=== PATIENT | female | born 1975 ===

== ENCOUNTER 2020-07-20 15:20 | Outpatient (REF) | payer OTHER, SELFPAY | END 2020-07-20 15:21 | disposition home or self-care (01) | LOC: HO.LAB 15:20 | PROVIDERS: PCP Internal Medicine; Visit Provider Internal Medicine | DX: Z20.828 Contact with and (suspected) exposure to other viral communicable diseases (principal) | CPT/HCPCS: C9803; U0003 ==

== ENCOUNTER → 2020-10-06 13:44 | Outpatient (BNVA) | payer OTHER, SELFPAY | PROVIDERS: PCP Internal Medicine; Visit Provider Hospitalist | DX: J45.50 Severe persistent asthma, uncomplicated (principal); J30.9 Allergic rhinitis, unspecified; G47.33 Obstructive sleep apnea (adult) (pediatric) | CPT/HCPCS: 99212 ==

== ENCOUNTER → 2021-04-06 13:44 | Outpatient (BNVA) | payer OTHER, SELFPAY | PROVIDERS: PCP Internal Medicine; Visit Provider Hospitalist | DX: J45.50 Severe persistent asthma, uncomplicated (principal); J30.9 Allergic rhinitis, unspecified; G47.33 Obstructive sleep apnea (adult) (pediatric) | CPT/HCPCS: 99212 ==

== ENCOUNTER → 2021-04-12 15:16 | Outpatient (BNVA) | payer OTHER, SELFPAY | PROVIDERS: PCP Internal Medicine; Visit Provider Anesthesiology | DX: M47.812 Spondylosis without myelopathy or radiculopathy, cervical region (principal); M47.814 Spondylosis without myelopathy or radiculopathy, thoracic region; M47.816 Spondylosis without myelopathy or radiculopathy, lumbar region; M48.061 Spinal stenosis, lumbar region without neurogenic claudication; M51.36 Other intervertebral disc degeneration, lumbar region; E66.01 Morbid (severe) obesity due to excess calories; E11.69 Type 2 diabetes mellitus with other specified complication; G47.33 Obstructive sleep apnea (adult) (pediatric) | CPT/HCPCS: 99202 ==

== ENCOUNTER 2021-06-15 09:36 | Outpatient (REF) | payer OTHER, SELFPAY ==
--- NOTE | ~2021-06-15 | MR_ITS ---
EXAMINATION: MR LUMBAR SPINE WITHOUT CONTRAST CLINICAL INFORMATION: Spinal stenosis, lumbar region. COMPARISON: There are no prior studies available for comparison. TECHNIQUE: MRI of the lumbar spine was obtained using routine sequences without contrast. FINDINGS: VERTEBRAL BODIES AND PARASPINAL STRUCTURES: There is anatomic alignment of the vertebral bodies. Intervertebral disc heights are maintained, but there is loss of signal from the discs at L3-L4 and L5-S1. There are mild degenerative endplate contour changes. There are small Schmorl's nodes at multiple levels. Vertebral body heights are maintained and there are no acute fractures. There are areas of increased T1 and T2 signal in the bodies of L3 and L5, and in the right pedicle of L5, consistent with hemangiomata. Overall, marrow signal is homogenous. The visualized retroperitoneal and pelvic structures are unremarkable. CONUS MEDULLARIS AND CAUDA EQUINA: Normal, terminating at the level of L1. The lower thoracic spinal cord appears normal. The cauda equina nerve roots and filum terminale appear normal. SPINAL LEVELS: T12-L1: The facet joints appear normal bilaterally. Disc contour is normal. There is no central stenosis or foraminal narrowing. L1-L2: The facet joints appear normal bilaterally. Disc contour is normal. There is no central stenosis or foraminal narrowing. L2-L3: There is mild bilateral facet arthropathy with ligamenta flava hypertrophy. Disc contour is normal. There is no central stenosis or foraminal narrowing. L3-L4: There is mild bilateral facet arthropathy with ligamenta flava hypertrophy. There is a mild diffuse disc bulge. There is no central stenosis and the neural foramina are patent. L4-L5: There is mild to moderate bilateral facet arthropathy with ligamenta flava hypertrophy. There is a posterior disc protrusion extending into the neural foramina bilaterally and there may be impingement on the exiting L4 nerve roots. There is narrowing of the bilateral subarticular recesses, and there is mild central stenosis. L5-S1: There is moderate bilateral facet arthropathy. There is a broad-based posterior disc protrusion with an annular fissure extending into the neural foramina bilaterally, with impingement on the exiting L5 nerve roots inferiorly. There is no central stenosis. MR/MR lumbar spine wo con IMPRESSION: 1. At L4-L5 there is facet arthropathy and there is a posterior disc protrusion extending into neural foramina with likely impingement on the exiting L4 nerve roots. There is narrowing of the bilateral subarticular recesses and there is mild central stenosis. 2. At L5-S1 there is moderate facet arthropathy and there is a broad-based posterior disc protrusion with impingement on the exiting L5 nerve roots. There is no central stenosis.
== END 2021-06-15 09:37 | disposition home or self-care (01) ==
LOC: HO.MRI 09:36
PROVIDERS: Visit Provider Anesthesiology
DX: M48.061 Spinal stenosis, lumbar region without neurogenic claudication (principal); M51.36 Other intervertebral disc degeneration, lumbar region; M47.816 Spondylosis without myelopathy or radiculopathy, lumbar region
CPT/HCPCS: 72148

== ENCOUNTER → 2021-09-17 13:32 | Outpatient (BNVA) | payer OTHER, SELFPAY | PROVIDERS: PCP Internal Medicine; Visit Provider Hospitalist | DX: J45.50 Severe persistent asthma, uncomplicated (principal); J30.9 Allergic rhinitis, unspecified; G47.33 Obstructive sleep apnea (adult) (pediatric); Z79.899 Other long term (current) drug therapy | CPT/HCPCS: 99212 ==

== ENCOUNTER 2022-03-17 11:52 | Outpatient (REF) | payer OTHER, SELFPAY ==
[2022-03-17 12:08] LABS: MANUAL DIFF FLAG NO
[2022-03-17 12:53] LABS: Basophils Percent Auto 0.5 % (0-2); Eosinophils Absolute Auto 0.3 X10*3/uL (0.0-0.4); Eosinophils Percent Auto 4.4 % (0-4); Hematocrit 39.5 % (37.0-47.0); Hemoglobin 12.4 g/dl (12.0-16.0); Imm Gran Abs Auto 0.02 X10*3/uL (0.00-0.03); Imm Gran Pct Auto 0.3 % (0.0-0.4); Lymphocytes Percent Auto 26.7 % (20-40); Mean Corpuscular HGB Conc 31.4 g/dl (31.0-35.0); Mean Corpuscular Hemoglobin 27.6 pg (27.0-33.0); Mean Platelet Volume 11.1 fL (9.4-12.3); Monocytes Absolute Auto 0.5 X10*3/uL (0.1-1.2); Monocytes Percent Auto 6.9 % (2-11); Neutrophils Absolute Auto 4.5 x10*3/uL (2.0-8.3); Neutrophils Percent Auto 61.2 % (45-73); Platelet Count 312 X10*3/uL (160-400); Red Blood Count 4.49 X10*6/uL (4.20-5.50); Red Cell Distribution Width 14.7 % (11.0-16.0); White Blood Count 7.3 X10*3/uL (4.8-10.8)
[2022-03-17 13:32] LABS: Erythrocyte Sedimentation Rate 8 MM/HR (0-20)
== END 2022-03-17 11:53 | disposition home or self-care (01) ==
LOC: HO.LAB 11:52
PROVIDERS: PCP Internal Medicine; Visit Provider Hospitalist
DX: J45.50 Severe persistent asthma, uncomplicated (principal); J44.9 Chronic obstructive pulmonary disease, unspecified; J30.9 Allergic rhinitis, unspecified; J32.9 Chronic sinusitis, unspecified; G47.33 Obstructive sleep apnea (adult) (pediatric)
CPT/HCPCS: 36415; 82785; 85025; 85652; 86003; 99212

== ENCOUNTER → 2022-05-16 10:45 | Outpatient (BNVA) | payer OTHER, SELFPAY | PROVIDERS: PCP Internal Medicine; Visit Provider Hospitalist | DX: J44.9 Chronic obstructive pulmonary disease, unspecified (principal); J45.50 Severe persistent asthma, uncomplicated; G47.33 Obstructive sleep apnea (adult) (pediatric); J32.9 Chronic sinusitis, unspecified | CPT/HCPCS: 99212 ==

== ENCOUNTER → 2022-07-27 07:53 | Outpatient (BNVA) | payer OTHER, SELFPAY | PROVIDERS: PCP Internal Medicine; Visit Provider Internal Medicine Rheumatology | DX: M19.041 Primary osteoarthritis, right hand (principal); M19.042 Primary osteoarthritis, left hand; M17.0 Bilateral primary osteoarthritis of knee; M47.816 Spondylosis without myelopathy or radiculopathy, lumbar region; M79.7 Fibromyalgia | CPT/HCPCS: 99202 ==

== ENCOUNTER → 2022-08-26 10:45 | Outpatient (BNVA) | payer OTHER, SELFPAY | PROVIDERS: PCP Internal Medicine; Visit Provider Hospitalist | DX: J45.50 Severe persistent asthma, uncomplicated (principal); J42 Unspecified chronic bronchitis; J32.9 Chronic sinusitis, unspecified; E66.01 Morbid (severe) obesity due to excess calories; Z68.31 Body mass index [BMI] 31.0-31.9, adult; Z99.89 Dependence on other enabling machines and devices | CPT/HCPCS: 99212 ==

== ENCOUNTER → 2022-12-16 10:52 | Outpatient (BNVA) | payer OTHER, SELFPAY | PROVIDERS: PCP Internal Medicine; Visit Provider Hospitalist | DX: J45.51 Severe persistent asthma with (acute) exacerbation (principal); J30.9 Allergic rhinitis, unspecified; J42 Unspecified chronic bronchitis; J40 Bronchitis, not specified as acute or chronic; G47.33 Obstructive sleep apnea (adult) (pediatric) | CPT/HCPCS: 99212 ==

== ENCOUNTER 2023-09-13 10:02 | Outpatient (AMB) | payer OTHER, SELFPAY ==
[2023-09-13 10:06] VITALS: BP 140/84; PULSE 87; RESP 16; TEMP 36.5; O2SAT 97; BMI 34.0
--- NOTE | 2023-09-13 10:06 | MHC.OFFVIS ---
Intake Vital Signs 09/13/23 10:06 Height 5 ft 2 in Weight 185 lb 13.595 oz BMI 34.0 BP 140/84 H Blood Pressure Location Lt brachial Position Sitting Respiration 16 Pulse 87 Pulse Source Pulse Oximeter Temp 97.7 F Temp Source Tympanic Pulse Oximetry (%) 97 Oxygen Delivery Method Room Air Intake Visit Reasons: Joint pain Textile Converter Required: Yes Textile Converter Name: Zeeshan Maldonado #[id number] Accompanied by: Self / Same As Patient Allergies ciprofloxacin Allergy (Severe, Verified 09/13/23 10:09) Rash and Itching Medication List - Last Reconciled 09/13/23 by Lorena Vazquez RN atorvastatin 40 mg PO DAILY azelastine-fluticasone 137-50 mcg/spray (Dymista) 1 spray intranasal BID 30 days benzonatate 200 mg PO TID PRN 30 days budesonide 0.5 mg inhalation DAILY cetirizine 10 mg PO DAILY 30 days citalopram 0 mg PO codeine-guaifenesin 10-100 mg/5 mL 10 mL PO Q6H PRN 10 days colestipol 3 grams PO BID dextromethorphan-guaifenesin 5-100 mg/5 mL (Robitussin Cough-Chest Congestion DM) 10 mL PO Q6H PRN 30 days dorzolamide-timolol 22.3-6.8 mg/mL 1 drp ophthalmic (eye) BID doxycycline monohydrate 100 mg PO BID 14 days dulaglutide 0.75 mg subcut QWEEK epinephrine 1 IM DIRECTED famotidine (Pepcid) 40 mg PO BEDTIME 30 days fluticasone propion-salmeterol 232-14 mcg/actuation (AirDuo RespiClick) 1 inh inhalation BID gabapentin 800 mg PO TID glipizide ER 10 mg PO BID hydroxyzine pamoate 50 mg PO BID PRN liraglutide 1.2 mg subcut DAILY meloxicam 7.5 mg PO BID metformin ER 500 mg PO BID montelukast (Singulair) 10 mg PO BEDTIME 30 days nebulizers As directed prazosin 2 mg PO BEDTIME pseudoephedrine HCl ER 120 mg PO Q12H 14 days roflumilast (Daliresp) 250 mcg PO DAILY 30 days simethicone (Anti-Gas Ultra Strength) 180 mg PO BID PRN tiotropium bromide 2.5 mcg/actuation 2 puffs PO DAILY trazodone 50 mg PO BEDTIME PRN umeclidinium 62.5 mcg/actuation 1 inh inhalation DAILY HPI HPI Comments History of Present Illness Details Ms. Lopez 48 yoF presents for follow-up evaluation of continued widespread pains. The patient had an initial visit 07/2022 and was put on a PRN basis. The patient has a 25-30 year history of widespread pains. She had been evaluated at [place] about [address] Esteban and yana conclusion was reached as at her visit with our office. She was thought to have fibromyalgia and osteoarthritis. Today she continues to describe pains in the knees, shoulders, neck, lower back, hands mostly around the base of the thumbs, and the feet. She remains on a host of medicines including citalopram, gabapentin, and trazodone. These medicines do help her sleep but do not help too much the pain. In the past she also was taking ibuprofen but that bothered her stomach. She was switched to meloxicam at 7.5 mg b.i.d. but still has stomach upset including pain and loose stools but little relief. She is here today to ask for something stronger for pain relief. [facility] Medical History (Updated 09/13/23 @ 13:37 by Emy Pierre [facility]) Intermittent pain and swelling of hand Chronic bronchitis Morbid obesity Diabetes mellitus type 2 in obese Disc degeneration, lumbar Spinal stenosis, lumbar Spondylosis of lumbar spine Spondylosis of thoracic spine Spondylosis of cervical spine IGGY (obstructive sleep apnea) Chronic allergic rhinitis Asthma Surgical History Hx of endoscopy History of partial hysterectomy Hx of colonoscopy Hx of cholecystectomy History of 3 sections Family History Mother Coronary artery disease Hypertension Diabetes High cholesterol Glaucoma Father Hypertension Diabetes High cholesterol Social History Alcohol intake: current Alcohol intake frequency: does not drink Patient Tobacco Use Status: Never used Tobacco Physical Exam Vital Signs: Last Vital Signs Temp 97.7 F 09/13/23 10:06 Pulse 87 09/13/23 10:06 Resp 16 09/13/23 10:06 BP 140/84 H 09/13/23 10:06 Pulse Ox 97 09/13/23 10:06 Oxygen Delivery Method Room Air 09/13/23 10:06 BMI result Body Mass Index 34.0 APPEARANCE: Patient in no acute distress EYES no redness, pupils equal and reactive to light, eyelids normal EARS: External ear normal, canal clear and tympanic membrane normal. NOSE/SINUS: Airflow through both nares, no nasal discharge, no bleeding THROAT: Oral mucosa moist, no ulcerations NECK: No thyromegaly or masses, no adenopathy, trachea midline. HEART: Regulrar rhythm, S1-S2 heard, no murmurs, rubs or gallops. LUNG: Clear to percussion and auscultation ABD: Normal bowel sounds, no organomegaly, masses or tenderness. EXTREMITIES: No edema, no calf tenderness, normal peripheral pulses. NEURO: Oriented and alert x3. No focal weakness. Reflexes symmetric. Gait normal. SKIN: No inflammatory or neoplastic lesions. Normal color and turgor JOINT EXAM:.?? Cervical Spine:.? Full range of motion with mild discomfort. Some cervical muscle tenderness. Thoracic Spine:.? No scoliosis.? No tenderness on palpation. Lumbar Spine:.? Alignment normal.? Lumbar pain with flexion 75 degrees with some mild paraspinal muscle tenderness. Chest Wall:.? No tenderness, swelling, increased warmth or erythema. Hands: Right: It is mild 1st CMC bony enlargement with [id number] tenderness. There is slight tenderness across all the other MCP and PIP joints but no signs of swelling, redness or warmth. No thenar atrophy or sensory loss. Left: Mild 1st CMC bony enlargement with slight tenderness. Diffuse tenderness in all the other joints in the hand with mild swelling at CMC but no redness or warmth. No flexor tendon triggering, thenar atrophy or sensory loss. Wrists:.? Mild pain with extremes of normal range of motion and some slight dorsal tenderness but no swelling, increased warmth or erythema. Elbows:. Normal pain-free range of motion with slight tenderness over the lateral epicondyles. Over the joint spaces there is tenderness, but no swelling, increased warmth or erythema. Shoulders: Right: Mild pain with abduction at 135 degrees or with extremes of rotation. Mild anterior tenderness. No abductor weakness or adenopathy. Left:?? Full range of motion with slight discomfort at the extremes. Slight anterior tenderness without adenopathy, weakness, swelling, increased warmth or erythema. Hips:.? Full range of motion without pain. Hip bursa:.? No tenderness. Knees:.??Mild pain with extreme of extension or flexion. There is mild medial compartment tenderness and some minimal patellofemoral crepitus but no redness or effusion. Ankles:.? Normal pain-free range of motion without tenderness, swelling, increased warmth or erythema. Feet:.? Normal pain-free range of motion with mild 1st MTP bony enlargement. She has rather diffuse tenderness in the instep, MTP region, and toe regions but no soft tissue swelling, increased warmth or erythema. Tender points:.? Mild tenderness to digital palpation at the occiput, trapezius, second rib, lateral epicondyle, knees, greater trochanter and gluteal area bilaterally. ? Assessment & Plan Assessment & Plan (1) Osteoarthritis of hands, bilateral: Code(s): M19.041 - Primary osteoarthritis, right hand; M19.042 - Primary osteoarthritis, left hand Qualifiers: Osteoarthritis type: primary Qualified Code(s): M19.041 - Primary osteoarthritis, right hand; M19.042 - Primary osteoarthritis, left hand (2) Osteoarthritis of knees, bilateral: Code(s): M17.0 - Bilateral primary osteoarthritis of knee Qualifiers: Osteoarthritis type: primary Qualified Code(s): M17.0 - Bilateral primary osteoarthritis of knee (3) Spondylosis of lumbar spine: Code(s): M47.816 - Spondylosis without myelopathy or radiculopathy, lumbar region (4) Intermittent pain and swelling of hand: Code(s): M79.643 - Pain in unspecified hand; M79.89 - Other specified soft tissue disorders Plan #OA of Knees and Hands/Hand Swelling: Ms. Lopze has had many years of widespread pain. Today on exam there is some soft tissue swelling to bilateral thumb/CMC joints. Radiographically it has been documented that she has some mild osteoarthritis in the cervical spine, lumbar spine, knees, and hands. I will give patient a course of Prednisone and reassess. I will obtain obtain labs and check for esr/crp Elevations and Xrays to assess the hand IP joints. Uric acid levels will also help to eliminate gout. If Prednisone is helpful, given the hand swelling, I will start her on Leflunomide and reassess. I have no record of RHeum labs so I will obtain those also. #Lumbar Spondylosis: She sees Pain management but has not gone back because she does not want injections. I think overall the pain generator is mostly the fibromyalgia. She is already taking an antidepressant and substantial doses of gabapentin. I do not really think there is additional pharmacological maneuvers here that would be beneficial. She should probably not be taking the meloxicam since it could be bothering her stomach. She should switch to acetaminophen up to 1 g t.i.d.. We discussed that light aerobic activity would be beneficial for her overall functioning. Even though she has pains and fatigue with activity she should try to pursue a daily physical activity. I spent 40 minutes reviewing chart, evaluating patient and documenting. Orders: Orders Erythrocyte Sedimentation Rate Today M79.643 - Pain in unspecified hand, M79.89 - Other specified soft tissue disorders C Reactive Protein Today M79.643 - Pain in unspecified hand, M79.89 - Other specified soft tissue disorders Comprehensive Met. Panel Today M79.643 - Pain in unspecified hand, M79.89 - Other specified soft tissue disorders XR hand LT min 3V Today M79.643 - Pain in unspecified hand, M79.89 - Other specified soft tissue disorders XR hand RT min 3V Today M79.643 - Pain in unspecified hand, M79.89 - Other specified soft tissue disorders Anti Extractable Nuclear Ag Today M79.643 - Pain in unspecified hand, M79.89 - Other specified soft tissue disorders Uric Acid Today M79.643 - Pain in unspecified hand, M79.89 - Other specified soft tissue disorders Complete Blood Count Auto Diff Today M79.643 - Pain in unspecified hand, M79.89 - Other specified soft tissue disorders, Z79.899 - Other termite control servicer (current) drug therapy Cyclic Citrullinated Peptide Today M79.643 - Pain in unspecified hand, M79.89 - Other specified soft tissue disorders Rheumatoid Factor Today M79.643 - Pain in unspecified hand, M79.89 - Other specified soft tissue disorders PATI Reflex Titer and Pattern Today M79.643 - Pain in unspecified hand, M79.89 - Other specified soft tissue disorders Medications: New prednisone 3 tablets x 7 days, 2 tablets x 7 days, 1 tablet x 2 weeks stop 60 tabs 0RF M79.643 - Pain in unspecified hand, M79.89 - Other specified soft tissue disorders Coding Level of Care Code Est Pt Level 4 (15416) Diagnoses Primary osteoarthritis of both hands M19.041; M19.042 Osteoarthritis type: primary Primary osteoarthritis of both knees M17.0 Osteoarthritis type: primary Spondylosis of lumbar spine M47.816 Intermittent pain and swelling of hand M79.643; M79.89
== END 2023-09-13 10:42 | disposition home or self-care (01) ==
PROVIDERS: PCP Internal Medicine; Visit Provider Nurse Practitioner Family
DX: M19.041 Primary osteoarthritis, right hand (principal); M19.042 Primary osteoarthritis, left hand; M17.0 Bilateral primary osteoarthritis of knee; M47.816 Spondylosis without myelopathy or radiculopathy, lumbar region; M79.643 Pain in unspecified hand; M79.89 Other specified soft tissue disorders
CPT/HCPCS: 99214

== ENCOUNTER → 2023-09-13 10:02 | Outpatient (BNVA) | payer OTHER, SELFPAY | PROVIDERS: PCP Internal Medicine; Visit Provider Nurse Practitioner Family | DX: M19.041 Primary osteoarthritis, right hand (principal); M19.042 Primary osteoarthritis, left hand; M17.0 Bilateral primary osteoarthritis of knee; M47.816 Spondylosis without myelopathy or radiculopathy, lumbar region; M79.643 Pain in unspecified hand; M79.89 Other specified soft tissue disorders | CPT/HCPCS: 99212 ==

== ENCOUNTER 2023-09-13 10:49 | Outpatient (REF) | payer OTHER, SELFPAY ==
--- NOTE | ~2023-09-13 | XR_ITS ---
EXAMINATION: XR HAND, LEFT CLINICAL INFORMATION: Pain. COMPARISON: None available. TECHNIQUE: PA, lateral, and oblique views of the left hand. FINDINGS: No fracture or subluxation. Mild multifocal degenerative osteoarthritis with joint space narrowing and trace subcortical sclerosis more noticeable in the first CMC and DIPs. No osseous erosions. No unusual soft tissue calcifications. XR/XR hand LT min 3V IMPRESSION: 1. No acute fractures or malalignment. 2. Mild multifocal degenerative osteoarthritis.
--- NOTE | ~2023-09-13 | XR_ITS ---
EXAMINATION: XR HAND, RIGHT CLINICAL INFORMATION: Pain. COMPARISON: None available. TECHNIQUE: PA, lateral, and oblique views of the right hand. FINDINGS: Bony alignment and mineralization are normal. There is a neutral ulnar variance. There are slight periarticular calcifications noted at the second and fourth distal interphalangeal and metacarpophalangeal there is slight periarticular calcifications noted of the third proximal interphalangeal joint. No acute fracture or dislocation is seen. There is no abnormal bone erosion. A small accessory ossification center is noted distal to the navicular. No focal soft tissue swelling, gas or foreign body seen. XR/XR hand RT min 3V IMPRESSION: There is minimal osteoarthritic change of the second through fourth fingers, as detailed. No acute fracture or dislocation is seen. There is no abnormal bone erosion..
[2023-09-13 13:01] LABS: MANUAL DIFF FLAG NO
[2023-09-13 13:04] LABS: Basophils Absolute Auto 0.1 X10*3/uL (0.0-0.2); Basophils Percent Auto 0.9 % (0-2); Eosinophils Absolute Auto 0.3 X10*3/uL (0.0-0.4); Eosinophils Percent Auto 4.8 % (0-4); Hematocrit 38.1 % (37.0-47.0); Imm Gran Abs Auto 0.03 X10*3/uL (0.00-0.03); Imm Gran Pct Auto 0.5 % (0.0-0.4); Lymphocytes Absolute Auto 2.1 X10*3/uL (1.2-4.9); Mean Corpuscular HGB Conc 31.5 g/dl (31.0-35.0); Mean Corpuscular Hemoglobin 27.3 pg (27.0-33.0); Mean Corpuscular Volume 86.6 fL (80.0-98.0); Mean Platelet Volume 10.9 fL (9.4-12.3); Monocytes Absolute Auto 0.9 X10*3/uL (0.1-1.2); Monocytes Percent Auto 13.5 % (2-11); Neutrophils Absolute Auto 3.2 x10*3/uL (2.0-8.3); Neutrophils Percent Auto 48.3 % (45-73); Platelet Count 400 X10*3/uL (160-400); Red Cell Distribution Width 15.7 % (11.0-16.0); White Blood Count 6.7 X10*3/uL (4.8-10.8)
[2023-09-13 13:36] LABS: Rheumatoid Factor < 13.0 IU/mL (<15.0)
[2023-09-13 13:40] LABS: Alanine Aminotransferase 12 U/L (0-31); Albumin Level 3.8 g/dL (3.5-5.0); Alkaline Phosphatase 111 U/L (39-117); Anion Gap 10 (12-20); Aspartate Amino Transferase 11 U/L (5-31); Bilirubin Total 0.4 mg/dL (0.0-1.0); Blood Urea Nitrogen 10 mg/dL (9-16); C Reactive Protein 0.41 mg/dL (< or = 0.50); Carbon Dioxide 29 mmol/L (22-29); Chloride 104 mmol/L (96-108); Estimated Glomerular Filt Rate > 60; Glucose Random 100 mg/dL (60-115); Potassium 3.4 mmol/L (3.3-5.1); Sodium 140 mmol/L (135-145); Total Protein 6.4 g/dL (6.5-8.0); Uric Acid 3.8 mg/dL (2.4-5.7)
[2023-09-13 13:52] LABS: Erythrocyte Sedimentation Rate 11 MM/HR (0-20)
[2023-09-15 14:14] LABS: Cyclic Citrullinated Peptide <16 UNITS
[2023-09-15 19:23] LABS: SM/Ribonucleoprotein Ab <1.0 NEG AI (<1.0 NEG); Smith Protein <1.0 NEG AI (<1.0 NEG)
[2023-09-19 11:19] LABS: Anti Nuclear Antibody Screen NEGATIVE (NEGATIVE)
== END 2023-09-13 10:50 | disposition home or self-care (01) ==
LOC: HO.10HDL 10:49
PROVIDERS: PCP Internal Medicine; Referring Provider Internal Medicine; Visit Provider Nurse Practitioner Family
DX: M79.641 Pain in right hand (principal); M79.642 Pain in left hand; M79.89 Other specified soft tissue disorders; Z79.899 Other long term (current) drug therapy
CPT/HCPCS: 36415; 73130; 80053; 84550; 85025; 85652; 86038; 86140; 86200; 86235; 86431

== ENCOUNTER 2023-10-18 10:33 | Outpatient (AMB) | payer OTHER, SELFPAY ==
[2023-10-18 10:35] VITALS: BP 132/78; PULSE 78; RESP 17; TEMP 36.8; O2SAT 98; BMI 33.4
--- NOTE | 2023-10-18 10:35 | A.OFFVIS_ITS ---
Intake Vital Signs 10/18/23 10:35 Height 5 ft 2 in Weight 182 lb 12.211 oz BMI 33.4 BP 132/78 Blood Pressure Location Lt brachial Respiration 17 Pulse 78 Pulse Source Pulse Oximeter Temp 98.2 F Temp Source Skin Pulse Oximetry (%) 98 Oxygen Delivery Method Room Air Intake Visit Reasons: Hand Pain and Swelling Cornetist Required: Yes Cornetist Name: zhang #[id number] Allergies ciprofloxacin Allergy (Severe, Verified 10/18/23 10:42) Rash and Itching Medication List - Last Reconciled 10/18/23 by Lorena Vazquez RN atorvastatin 40 mg PO DAILY azelastine-fluticasone 137-50 mcg/spray (Dymista) 1 spray intranasal BID 30 days benzonatate 200 mg PO TID PRN 30 days budesonide 0.5 mg inhalation DAILY cetirizine 10 mg PO DAILY 30 days citalopram 0 mg PO codeine-guaifenesin 10-100 mg/5 mL 10 mL PO Q6H PRN 10 days colestipol 3 grams PO BID dextromethorphan-guaifenesin 5-100 mg/5 mL (Robitussin Cough-Chest Congestion DM) 10 mL PO Q6H PRN 30 days dorzolamide-timolol 22.3-6.8 mg/mL 1 drp ophthalmic (eye) BID dulaglutide 0.75 mg subcut QWEEK epinephrine 1 IM DIRECTED famotidine (Pepcid) 40 mg PO BEDTIME 30 days fluticasone propion-salmeterol 232-14 mcg/actuation (AirDuo RespiClick) 1 inh inhalation BID gabapentin 800 mg PO TID glipizide ER 10 mg PO BID hydroxyzine pamoate 50 mg PO BID PRN liraglutide 1.2 mg subcut DAILY meloxicam 7.5 mg PO BID metformin ER 500 mg PO BID montelukast (Singulair) 10 mg PO BEDTIME 30 days nebulizers As directed prazosin 2 mg PO BEDTIME pseudoephedrine HCl ER 120 mg PO Q12H 14 days roflumilast (Daliresp) 250 mcg PO DAILY 30 days simethicone (Anti-Gas Ultra Strength) 180 mg PO BID PRN tiotropium bromide 2.5 mcg/actuation 2 puffs PO DAILY trazodone 50 mg PO BEDTIME PRN umeclidinium 62.5 mcg/actuation 1 inh inhalation DAILY HPI HPI Comments History of Present Illness Details Mr. 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 She denies any side effect of the prednisone except that it makes her eat more. She reports some improvement to her hands and feet on the prednisone. Since she has been off the prednisone she can feel some of the stiffness returning in her hands. She says not as before but she can feel the difference being off the prednisone. 09/13/2023 visit Emy Pierre Ms. Lopez 48 yoF presents for follow-up evaluation of continued widespread pains. The patient had an initial visit 07/2022 and was put on a PRN basis. The patient has a 25-30 year history of widespread pains. She had been evaluated at [place] about [address] Esteban and similar conclusion was reached as at her visit with our office. She was thought to have fibromyalgia and osteoarthritis. Today she continues to describe pains in the knees, shoulders, neck, lower back, hands mostly around the base of the thumbs, and the feet. She remains on a host of medicines including citalopram, gabapentin, and trazodone. These medicines do help her sleep but do not help too much the pain. In the past she also was taking ibuprofen but that bothered her stomach. She was switched to meloxicam at 7.5 mg b.i.d. but still has stomach upset including pain and loose stools but little relief. She is here today to ask for something stronger for pain relief. [facility] Medical History (Updated 10/23/23 @ 12:56 by Emy Pierre, [facility]) Inflammatory arthropathy Long-term use of immunosuppressant medication Intermittent pain and swelling of hand Chronic bronchitis Morbid obesity Diabetes mellitus type 2 in obese Disc degeneration, lumbar Spinal stenosis, lumbar Spondylosis of lumbar spine Spondylosis of thoracic spine Spondylosis of cervical spine IGGY (obstructive sleep apnea) Chronic allergic rhinitis Asthma Surgical History Hx of endoscopy History of partial hysterectomy Hx of colonoscopy Hx of cholecystectomy History of 3 sections Family History Mother Coronary artery disease Hypertension Diabetes High cholesterol Glaucoma Father Hypertension Diabetes High cholesterol Social History Alcohol intake: current Alcohol intake frequency: does not drink Patient Tobacco Use Status: Never used Tobacco Review of Systems Const All systems reviewed & are unremarkable except as noted in HPI and below Physical Exam Vital Signs: Last Vital Signs Temp 98.2 F 10/18/23 10:35 Pulse 78 10/18/23 10:35 Resp 17 10/18/23 10:35 BP 132/78 10/18/23 10:35 Pulse Ox 98 10/18/23 10:35 Oxygen Delivery Method Room Air 10/18/23 10:35 BMI result Body Mass Index 33.4 APPEARANCE: Patient in no acute distress EYES no redness, pupils equal and reactive to light, eyelids normal EARS: External ear normal, canal clear and tympanic membrane normal. NOSE/SINUS: Airflow through both nares, no nasal discharge, no bleeding THROAT: Oral mucosa moist, no ulcerations NECK: No thyromegaly or masses, no adenopathy, trachea midline. HEART: Regulrar rhythm, S1-S2 heard, no murmurs, rubs or gallops. LUNG: Clear to percussion and auscultation ABD: Normal bowel sounds, no organomegaly, masses or tenderness. EXTREMITIES: No edema, no calf tenderness, normal peripheral pulses. NEURO: Oriented and alert x3. No focal weakness. Reflexes symmetric. Gait normal. SKIN: No inflammatory or neoplastic lesions. Normal color and turgor JOINT EXAM:.?? Cervical Spine:.? Full range of motion with mild discomfort. Some cervical muscle tenderness. Thoracic Spine:.? No scoliosis.? No tenderness on palpation. Lumbar Spine:.? Alignment normal.? Lumbar pain with flexion 75 degrees with some mild paraspinal muscle tenderness. Chest Wall:.? No tenderness, swelling, increased warmth or erythema. Hands: Right: It is mild 1st CMC bony enlargement with roah-ax-ukhtkiat tenderness. There is slight tenderness across all the other MCP and PIP joints but no signs of swelling, redness or warmth. No thenar atrophy or sensory loss. Left: Mild 1st CMC bony enlargement with slight tenderness. Diffuse tenderness in all the other joints in the hand with mild swelling at CMC but no redness or warmth. No flexor tendon triggering, thenar atrophy or sensory loss. Wrists:.? Mild pain with extremes of normal range of motion and some slight dorsal tenderness but no swelling, increased warmth or erythema. Elbows:. Normal pain-free range of motion with slight tenderness over the lateral epicondyles. Over the joint spaces there is tenderness, but no swelling, increased warmth or erythema. Shoulders: Right: Mild pain with abduction at 135 degrees or with extremes of rotation. Mild anterior tenderness. No abductor weakness or adenopathy. Left:?? Full range of motion with slight discomfort at the extremes. Slight anterior tenderness without adenopathy, weakness, swelling, increased warmth or erythema. Hips:.? Full range of motion without pain. Hip bursa:.? No tenderness. Knees:.??Mild pain with extreme of extension or flexion. There is mild medial compartment tenderness and some minimal patellofemoral crepitus but no redness or effusion. Ankles:.? Normal pain-free range of motion without tenderness, swelling, increased warmth or erythema. Feet:.? Normal pain-free range of motion with mild 1st MTP bony enlargement. She has rather diffuse tenderness in the instep, MTP region, and toe regions but no soft tissue swelling, increased warmth or erythema. Tender points:.? Mild tenderness to digital palpation at the occiput, trapezius, second rib, lateral epicondyle, knees, greater trochanter and gluteal area bilaterally. ? Results Reviewed Results Reviewed: [facility] [place] MED[facility] Imaging Result Report Patient: Jessica Ochoa Date of Service: 08/23/17 ? ? Patient Gender: Female Ordering Provider: Bre Barriga : 1975 ? ? ? Final X-RAY EXAM OF HAND, 3+ VIEWS Exam Date: 08/23/2017 11:36 AM Ordering Diagnosis: Chronic pain syndromePain in both hands ? Bilateral hands, 3 views of each. History bilateral hands pain and stiffness. ? There is periarticular osteopenia. There is no fractures, dislocations, abnormal soft tissue calcifications or erosions. There are mild degenerative changes in the DIP joints of multiple digits bilaterally. ? CONCLUSIONS: Mild degenerative changes in the DIP joints of multiple digits. Periarticular osteopenia. ? Reading Radiologist: Electronically signed by: Diane Lund MD X-RAY KNEE 3 VIEW - W/O INJURY Exam Date: 06/19/2017 12:29 PM Ordering Diagnosis: Pain in both knees, unspecified chronicity ? History: Bilateral knee pain. ? Bilateral knees, 3 views each: Bony structures are radiographically intact. There are no appreciable degenerative changes. There is no evidence of joint effusions. There are small spurs at the quadriceps tendon insertions on the patella bilaterally. Soft tissues are unremarkable. ? IMPRESSION Small superior patellar spurs. Otherwise normal views of both knees. ? Reading Radiologist: Electronically signed by: Carmencita Lund [facility] MED[facility] Imaging Result Report Patient: Jessica Ochoa Date of Service: 04/12/19 ? ? Patient Gender: Female Ordering Provider: Alex Berumen : 1975 ? ? ? Final X-RAY EXAM OF THORACIC SPINE Exam Date: 04/12/2019 1:42 PM Ordering Diagnosis: Chronic neck and back painMyofascial pain syndromeThoracic segment dysfunction ? Thoracic spine: ? HISTORY: Back pain ? 3 views. Mild multilevel degenerative disc disease with disc space narrowing and endplate spurring. No fracture, subluxation or focal vertebral pathology. Surgical clips right upper quadrant. ? IMPRESSION IMPRESSION: Mild multilevel degenerative disc disease. ? Reading Radiologist: Electronically signed by: Alex Garcia MD * ?Result Notes [id number] ComponentRef Range & Units4 yr ago6 yr ago9 yr ago RHEUMATOID FACTOR<14.0 IU/mL Result: < 10.0< 10.0 * ?Result Notes [id number] ComponentRef Range & Units4 yr ago6 yr agoANTI-NUCLEAR ANTIBODY SCREEN: NEGATIVE NEGATIVENEGATIVE ?CMComment:?PATI test should be ordered only if a clinical evidence of SLE or other rheumatic condition exists. ?PATI test should not be used for random screening h Specimen Collected:?08/30/17 11:04 AMLast Resulted:?09/01/17? ComponentRef Range & Units4 yr ago CCPNEGATIVENEGATIVECCP QUANT<20 UNITS Specimen Collected:?08/30/17 11:04 AMLast Resulte Laboratory Tests 09/13/23 11:00 WBC 6.7 RBC 4.40 Hgb 12.0 Hct 38.1 ESR 11 AST 11 ALT 12 C-Reactive Protein 0.41 Rheumatoid Factor < 13.0 Cycl Citrul Peptide IgG <16 PATI Screen NEGATIVE Sm (Nesbitt) Antibody <1.0 NEG SM/TOUR SALES REPRESENTATIVE IgG Antibody <1.0 NEG Assessment & Plan Assessment & Plan (1) Osteoarthritis of hands, bilateral: Code(s): M19.041 - Primary osteoarthritis, right hand; M19.042 - Primary osteoarthritis, left hand Qualifiers: Osteoarthritis type: primary Qualified Code(s): M19.041 - Primary osteoarthritis, right hand; M19.042 - Primary osteoarthritis, left hand (2) Osteoarthritis of knees, bilateral: Code(s): M17.0 - Bilateral primary osteoarthritis of knee Qualifiers: Osteoarthritis type: primary Qualified Code(s): M17.0 - Bilateral primary osteoarthritis of knee (3) Spondylosis of lumbar spine: Code(s): M47.816 - Spondylosis without myelopathy or radiculopathy, lumbar region (4) Intermittent pain and swelling of hand: Code(s): M79.643 - Pain in unspecified hand; M79.89 - Other specified soft tissue disorders (5) Inflammatory arthropathy: Code(s): M19.90 - Unspecified osteoarthritis, unspecified site (6) Long-term use of immunosuppressant medication: Code(s): Z79.60 - detention (current) use of unspecified immunomodulators and immunosuppressants Plan # inflammatory arthropathy: Given that she has had improvement on the prednisone. Her hand pain and swelling, I will start her on leflunomide 10 mg daily for 2 weeks and then increase to 20 mg daily. The patient agrees with this plan. She says she did feel better on the prednisone there are residual pains, but we hope that leflunomide is effective to address the hand swelling and pain. # long-term use We discussed possible side effects of leflunomide to include but not limited to nausea vomiting diarrhea. Patient knows to stop taking the medi cation if she has fevers and infection. We will monitor her CBC and CMP on leflunomide #OA of Knees and Hands/Hand Swelling: Ms. Lopez has had many years of widespread pain. Radiographically she has mild osteoarthritis in the cervical spine, lumbar spine, knees, and hands. I explained to patient that she will continue to have some pain that may be related to osteoarthritis and lower back pain that does not have an autoimmune inflammatory pathology and will not be improved on leflunomide. She will continue to take ibuprofen, gabapentin and Tylenol. #Lumbar Spondylosis: She sees Pain management but has not gone back because she does not want injections. I think overall the pain generator is mostly the fibromyalgia. She is already taking an antidepressant and substantial doses of gabapentin. I do not really think there is additional pharmacological maneuvers here that would be beneficial. She should probably not be taking the meloxicam since it could be bothering her stomach. She should switch to acetaminophen up to 1 g t.i.d.. We discussed that light aerobic activity would be beneficial for her overall functioning. Even though she has pains and fatigue with activity she should try to pursue a daily physical activity. I spent 25 minutes reviewing chart, evaluating patient and documenting. Follow-up in 8 weeks Orders: Orders C Reactive Protein 10/18/23 Z79.60 - detention (current) use of unspecified immunomodulators and immunosuppressants Alanine Aminotransferase 10/18/23 Z79.60 - detention (current) use of unspecified immunomodulators and immunosuppressants, Z79.899 - Other watermelon harvesting supervisor (current) drug therapy Complete Blood Count Auto Diff 10/18/23 Z79.60 - keno terminal operator (current) use of unspecified immunomodulators and immunosuppressants, Z79.899 - Other longterm (current) drug therapy Creatinine 10/18/23 Z79.60 - detention (current) use of unspecified immunomodulators and immunosuppressants, Z79.899 - Other longterm (current) drug therapy Erythrocyte Sedimentation Rate 10/18/23 Z79.60 - keno terminal operator (current) use of unspecified immunomodulators and immunosuppressants Aspartate Amino Transferase 10/18/23 Z79.60 - keno terminal operator (current) use of unspecified immunomodulators and immunosuppressants, Z79.899 - Other longterm (current) drug therapy Medications: New leflunomide 1 tablets per day x two weeks then 2 tablets per day 90 tabs 2RF M79.643 - Pain in unspecified hand, M79.89 - Other specified soft tissue disorders Coding Level of Care Code Est Pt Level 3 (18375) Diagnoses Primary osteoarthritis of both hands M19.041; M19.042 Osteoarthritis type: primary Primary osteoarthritis of both knees M17.0 Osteoarthritis type: primary Spondylosis of lumbar spine M47.816 Intermittent pain and swelling of hand M79.643; M79.89 Inflammatory arthropathy M19.90 Long-term use of immunosuppressant medication Z79.60
== END 2023-10-18 11:16 | disposition home or self-care (01) ==
PROVIDERS: PCP Internal Medicine; Visit Provider Nurse Practitioner Family
DX: M19.041 Primary osteoarthritis, right hand (principal); M19.042 Primary osteoarthritis, left hand; M17.0 Bilateral primary osteoarthritis of knee; M47.816 Spondylosis without myelopathy or radiculopathy, lumbar region; M79.643 Pain in unspecified hand; M79.89 Other specified soft tissue disorders; M19.90 Unspecified osteoarthritis, unspecified site; Z79.60 Long term (current) use of unspecified immunomodulators and immunosuppressants
CPT/HCPCS: 99213

== ENCOUNTER → 2023-10-18 10:33 | Outpatient (BNVA) | payer OTHER, SELFPAY | PROVIDERS: PCP Internal Medicine; Visit Provider Nurse Practitioner Family | DX: M19.041 Primary osteoarthritis, right hand (principal); M19.042 Primary osteoarthritis, left hand; M17.0 Bilateral primary osteoarthritis of knee; M47.816 Spondylosis without myelopathy or radiculopathy, lumbar region; M79.643 Pain in unspecified hand; M79.89 Other specified soft tissue disorders; M19.90 Unspecified osteoarthritis, unspecified site; Z79.60 Long term (current) use of unspecified immunomodulators and immunosuppressants | CPT/HCPCS: 99212 ==

== ENCOUNTER 2024-04-08 13:36 | Outpatient (AMB) | payer OTHER, SELFPAY ==
[2024-04-08 13:41] VITALS: PULSE 68; O2SAT 98; BMI 33.5
--- NOTE | 2024-04-08 13:41 | A.OFFVIS_ITS ---
Vital Signs 04/08/24 13:41 Height 5 ft 2 in Weight 183 lb BMI 33.5 Pulse 68 Pulse Source Pulse Oximeter Pulse Oximetry (%) 98 Oxygen Delivery Method Room Air Intake Visit Reasons: Asthma Financing Analyst Required: No Allergies ciprofloxacin Allergy (Severe, Verified 04/08/24 13:42) Rash and Itching HPI Comments Details: The patient is a 48-year-old woman known severe persistent asthma multiple allergies on maximize respiratory therapy. She is currently getting Xolair through her extended day teacher. Overall the patient has been doing better on this regimen. However, she still having episodes at nighttime which is waking up short of breath. The episodes are scary and has been becomes very concerned when she wakes up short of breath. Usually she is able to go back to sleep in does not have to use her rescue inhaler. The patient does wake up tired and does have headaches in the morning. Her Kooskia score is elevated over 08/13. The patient has been requested to have sleep studies but she has been reluctant. At this moment the patient needs to consider having sleep study he will plan to do at home so she can be more comfortable and be more hearing to doing it. In addition to that the patient has not been using his Spiriva as prescribed. I am hopeful that she can use it at nighttime in order to minimize some of those symptoms. The patient also has underlying reflux disease. We did talk about the reflux diet and she will try to minimize certain things like tomatoes and also soda. She is already eliminating coffee and fatty greasy foods. The patient will avoid eating 3 hours before bedtime unless she has to because of her diabetes. And she was sleep elevated and but blocks on the head of the bed to elevate the head of bed. 03/1924 the patient is here for pulmonary follow-up visit. Overall the patient has been doing fairly well from a respiratory status. She did have a few bouts of bronchitis during the summer and spring. Although she is feeling better. S he is having issues now with kidney stones. She did follow-up with urology and scheduled to undergo lithotripsy. For respiratory status she is doing very well right now. All she is using his her Ventolin rescue inhaler. The patient did have a maintenance inhaler before but she has not been using it. In view of her asthma issues in requiring her rescue inhaler couple times a week will go ahead and start her on Breo. In addition to that she can continue with her nasal therapy for nasal congestion and allergies. She continue on Xolair. The patient has been treated with CPAP. The CPAP therapy has been affecting beneficial. Although she does not use it every night. The patient does struggle with it still. I did encourage her to try to use it at least 4 hours a night. The patient is able to proceed with surgery and anesthesia from a pulmonary standpoint. Will go ahead and send a preop note to urology stating that she is okay to proceed. The patient should use her short-acting beta agonist as needed pre and post surgery. Otherwise after she has her surgery she can go ahead and start the Breo. [facility] Medical History (Updated 04/08/24 @ 13:48 by Tor Torres MD) Inflammatory arthropathy Long-term use of immunosuppressant medication Intermittent pain and swelling of hand Chronic bronchitis Morbid obesity Diabetes mellitus type 2 in obese Disc degeneration, lumbar Spinal stenosis, lumbar Spondylosis of lumbar spine Spondylosis of thoracic spine Spondylosis of cervical spine IGGY (obstructive sleep apnea) Chronic allergic rhinitis Asthma Surgical History Hx of endoscopy History of partial hysterectomy Hx of colonoscopy Hx of cholecystectomy History of 3 sections Family History Mother Coronary artery disease Hypertension Diabetes High cholesterol Glaucoma Father Hypertension Diabetes High cholesterol Social History Alcohol intake: current Alcohol intake frequency: does not drink Patient Tobacco Use Status: Never used Tobacco Review of Systems Const Reports difficulty sleeping, Denies night sweats and Reports weight gain ENT Denies change in voice, Denies lip swelling, Denies mouth pain, Reports nasal congestion, Reports nasal discharge and Denies tongue swelling Card Denies chest pain Resp Reports chest congestion, Reports cough, Denies hemoptysis and Reports wheezing GI Denies abdominal pain Musc Denies no additional complaints Psych Denies no additional complaints Lasha/Lymph Denies easy bleeding and Denies lymphadenopathy Aller/Immun Denies lip swelling, Denies tongue swelling and Reports wheezing Physical Exam Vital Signs: Last Vital Signs Pulse 68 04/08/24 13:41 Pulse Ox 98 04/08/24 13:41 Oxygen Delivery Method Room Air 04/08/24 13:41 BMI result Body Mass Index 33.5 Const General: alert HEENT Ears: TM's normal bilaterally General nose exam: Abnormal mucous membranes and turbinates present, Nasal discharge present and no nasal polyps Throat: Yes cobblestoning Neck Neck: Yes normal visual inspection, Yes full ROM and Yes no lymphadenopathy Chest Chest palpation & inspection: normal inspection of the chest Resp Effort & Inspection: normal respiratory effort Auscultation: no wheezes and diminished lung sounds Cardio Rate: regular rate Rhythm: regular rhythm Heart sounds: S1 normal heart sound present and S2 normal heart sound present GI Palpation (GI): Soft to palpation and nontender Auscultation: normal bowel sounds Assessment & Plan Assessment & Plan (1) Asthma: Code(s): J45.909 - Unspecified asthma, uncomplicated Category: Medical Qualifiers: Asthma complication type: with acute exacerbation Asthma persistence: persistent Asthma severity: severe Qualified Code(s): J45.51 - Severe persistent asthma with (acute) exacerbation (2) Chronic allergic rhinitis: Code(s): J30.9 - Allergic rhinitis, unspecified Category: Medical (3) IGGY (obstructive sleep apnea): Code(s): G47.33 - Obstructive sleep apnea (adult) (pediatric) Category: Medical (4) Tracheobronchitis: Code(s): J40 - Bronchitis, not specified as acute or chronic Category: Medical (5) Pre-op chest exam: Code(s): Z01.811 - Encounter for preprocedural respiratory examination Category: Medical Plan May proceed with anesthesia and lithotripsy at this time cough medicine stop Airduo BID start Breo daily *Rinse* OMAR as needed Nebulizer therapy therapy 2-3 times a day cont CPAP therapy, adjusted 4-12 Daliressp Continue Xolair. Nasal rinsing follow-up in 4-6 months, needs to bring CPAP Medications: New fluticasone furoate-vilanterol 100-25 mcg/dose (Breo Ellipta) 1 inh inhalation DAILY 30 days 60 ea 11RF azithromycin 500 mg PO DAILY 5 days 5 tabs 0RF Refilled dextromethorphan-guaifenesin 5-100 mg/5 mL (Robitussin Cough-Chest Congestion DM) 10 mL PO Q6H 30 days PRN 400 mL 3RF cough Coding Level of Care Code Est Pt Level 4 (39037) Diagnoses Severe persistent asthma with acute exacerbation J45.51 Asthma complication type: with acute exacerbation Asthma persistence: persistent Asthma severity: severe Chronic allergic rhinitis J30.9 IGGY (obstructive sleep apnea) G47.33 Tracheobronchitis J40 Pre-op chest exam Z01.811 Time Spent (min) 16
== END 2024-04-08 13:56 | disposition home or self-care (01) ==
PROVIDERS: PCP Internal Medicine; Visit Provider Hospitalist
DX: J45.51 Severe persistent asthma with (acute) exacerbation (principal); J30.9 Allergic rhinitis, unspecified; G47.33 Obstructive sleep apnea (adult) (pediatric); J40 Bronchitis, not specified as acute or chronic; Z01.811 Encounter for preprocedural respiratory examination
CPT/HCPCS: 99214

== ENCOUNTER → 2024-04-08 13:36 | Outpatient (BNVA) | payer OTHER, SELFPAY | PROVIDERS: PCP Internal Medicine; Visit Provider Hospitalist | DX: Z01.811 Encounter for preprocedural respiratory examination (principal); J45.51 Severe persistent asthma with (acute) exacerbation; J30.9 Allergic rhinitis, unspecified; J40 Bronchitis, not specified as acute or chronic; G47.33 Obstructive sleep apnea (adult) (pediatric); Z99.89 Dependence on other enabling machines and devices | CPT/HCPCS: 99212 ==

== ENCOUNTER 2024-11-18 12:36 | Outpatient (AMB) | payer OTHER, SELFPAY ==
[2024-11-18 13:03] VITALS: BP 140/72; PULSE 73; O2SAT 98; BMI 32.0
--- NOTE | 2024-11-18 13:03 | A.OFFVIS_ITS ---
Vital Signs 11/18/24 13:03 Height 5 ft 2 in Weight 175 lb BMI 32.0 BP 140/72 H Blood Pressure Location Lt brachial Position Sitting Pulse 73 Pulse Source Pulse Oximeter Pulse Oximetry (%) 98 Oxygen Delivery Method Room Air Intake Visit Reasons: Asthma Line Manager Required: No Allergies ciprofloxacin Allergy (Severe, Verified 11/18/24 13:05) Rash and Itching HPI Comments Details: The patient is a 49-year-old woman known severe persistent asthma multiple allergies on maximize respiratory therapy. She is currently getting Xolair through her seed pelleter. Overall the patient has been doing better on this regimen. However, she still having episodes at nighttime which is waking up short of breath. The episodes are scary and has been becomes very concerned when she wakes up short of breath. Usually she is able to go back to sleep in does not have to use her rescue inhaler. The patient does wake up tired and does have headaches in the morning. Her [place] score is elevated over 08/13. The patient has been requested to have sleep studies but she has been reluctant. At this moment the patient needs to consider having sleep study he will plan to do at home so she can be more comfortable and be more hearing to doing it. In addition to that the patient has not been using his Spiriva as prescribed. I am hopeful that she can use it at nighttime in order to minimize some of those symptoms. The patient also has underlying reflux disease. We did talk about the reflux diet and she will try to minimize certain things like tomatoes and also soda. She is already eliminating coffee and fatty greasy foods. The patient will avoid eating 3 hours before bedtime unless she has to because of her diabetes. And she was sleep elevated and but blocks on the head of the bed to elevate the head of bed. 03/1924 the patient is here for pulmonary follow-up visit. Overall the patient has been doing fairly well from a respiratory status. She did have a few bouts of bronchitis during the summer and spring. Although she is feeling better. She is having issues now with kidney stones. She did follow-up with urology and scheduled to undergo lithotripsy. For respiratory status she is doing very well right now. All she is using his her Ventolin rescue inhaler. The patient did have a maintenance inhaler before but she has not been using it. In view of her asthma issues in requiring her rescue inhaler couple times a week will go ahead and start her on Breo. In addition to that she can continue with her nasal therapy for nasal congestion and allergies. She continue on Xolair. The patient has been treated with CPAP. The CPAP therapy has been affecting beneficial. Although she does not use it every night. The patient does struggle with it still. I did encourage her to try to use it at least 4 hours a night. The patient is able to proceed with surgery and anesthesia from a pulmonary standpoint. Will go ahead and send a preop note to urology stating that she is okay to proceed. The patient should use her short-acting beta agonist as needed pre and post surgery. Otherwise after she has her surgery she can go ahead and start the Breo. 11/18/2024 the patient is here for a pulmonary follow-up visit. She has not been feeling well. She had to stop the Xolair because it was causing rash. She did not want to do any other shots at this time. She continues to use her respiratory inhalers with only partial improvement. She has also been complaining of a sore throat and some subjective fevers and a persistent cough. The cough bothers her at nighttime specially. Moderate severity. She just wants to feel better. She has not been able to use CPAP because she can not tolerate the mask. Therefore she has been sleeping without it. She also complains of some flank discomfort primarily in the left lung. When she is taking a deep breath. Would the look to see if she has had any imaging studies and we did not see any recent imaging studies or laboratories. Therefore after the visit she can go ahead and get x-rays and blood work. In the meantime will go ahead and start her on Symbicort to help her with her symptoms little bit more and also she can start a course of doxycycline. Will go ahead and follow- up with the blood work and she can return in 3 months we can follow-up with her response to therapy and to see if additional therapies are warranted. [facility] Medical History (Updated 04/08/24 @ 13:48 by Tor Torres MD) Inflammatory arthropathy Long-term use of immunosuppressant medication Intermittent pain and swelling of hand Chronic bronchitis Morbid obesity Diabetes mellitus type 2 in obese Disc degeneration, lumbar Spinal stenosis, lumbar Spondylosis of lumbar spine Spondylosis of thoracic spine Spondylosis of cervical spine IGGY (obstructive sleep apnea) Chronic allergic rhinitis Asthma Surgical History Hx of endoscopy History of partial hysterectomy Hx of colonoscopy Hx of cholecystectomy History of 3 sections Family History Mother Coronary artery disease Hypertension Diabetes High cholesterol Glaucoma Father Hypertension Diabetes High cholesterol Social History Alcohol intake: current Alcohol intake frequency: does not drink Patient Tobacco Use Status: Never used Tobacco Review of Systems Const Reports difficulty sleeping, Denies night sweats and Reports weight gain ENT Denies change in voice, Denies lip swelling, Denies mouth pain, Reports nasal congestion, Reports nasal discharge and Denies tongue swelling Card Denies chest pain Resp Reports chest congestion, Reports cough, Denies hemoptysis and Reports wheezing GI Denies abdominal pain Musc Denies no additional complaints Psych Denies no additional complaints Lasha/Lymph Denies easy bleeding and Denies lymphadenopathy Aller/Immun Denies lip swelling, Denies tongue swelling and Reports wheezing Physical Exam Vital Signs: Last Vital Signs Pulse 73 11/18/24 13:03 BP 140/72 H 11/18/24 13:03 Pulse Ox 98 11/18/24 13:03 Oxygen Delivery Method Room Air 11/18/24 13:03 BMI result Body Mass Index 32.0 Const General: alert HEENT Ears: TM's normal bilaterally General nose exam: Abnormal mucous membranes and turbinates present, Nasal discharge present and no nasal polyps Throat: Yes cobblestoning Neck Neck: Yes normal visual inspection, Yes full ROM and Yes no lymphadenopathy Chest Chest palpation & inspection: normal inspection of the chest Resp Effort & Inspection: normal respiratory effort Auscultation: no wheezes and diminished lung sounds Cardio Rate: regular rate Rhythm: regular rhythm Heart sounds: S1 normal heart sound present and S2 normal heart sound present GI Palpation (GI): Soft to palpation and nontender Auscultation: normal bowel sounds Assessment & Plan Assessment & Plan (1) Asthma: Code(s): J45.909 - Unspecified asthma, uncomplicated Category: Medical Qualifiers: Asthma complication type: with acute exacerbation Asthma persistence: persistent Asthma severity: severe Qualified Code(s): J45.51 - Severe persistent asthma with (acute) exacerbation (2) Chronic allergic rhinitis: Code(s): J30.9 - Allergic rhinitis, unspecified Category: Medical (3) IGGY (obstructive sleep apnea): Code(s): G47.33 - Obstructive sleep apnea (adult) (pediatric) Category: Medical (4) Tracheobronchitis: Code(s): J40 - Bronchitis, not specified as acute or chronic Category: Medical Plan start Symbicort OMAR as needed Nebulizer therapy therapy 2-3 times a day not using CPAP therapy not taking Daliresp stopped Xolair. cough medicine Nasal rinsing bloodwork CXR follow-up in 4-6 months Orders: Orders Complete Blood Count Auto Diff Today J45.51 - Severe persistent asthma with (acute) exacerbation Immunoglobulin E Today J45.51 - Severe persistent asthma with (acute) exacerbation Hypersensitive Pneumonitis Prf Today J45.51 - Severe persistent asthma with (acute) exacerbation, R91.8 - Other nonspecific abnormal finding of lung field Erythrocyte Sedimentation Rate Today J45.51 - Severe persistent asthma with (acute) exacerbation XR chest 2V Today J45.51 - Severe persistent asthma with (acute) exacerbation Medications: New benzonatate 200 mg PO BID PRN 60 caps 1RF cough 30 days albuterol sulfate 2.5 mg (3 mL) inhalation Q6H PRN 180 mL 11RF shortness of breath or wheezing 30 days budesonide-formoterol 160-4.5 mcg/actuation (Symbicort) 2 puffs inhalation BID 10.2 grams 11RF 30 days J44.89 - Other specified chronic obstructive pulmonary disease doxycycline hyclate 100 mg PO BID 20 caps 0RF 10 days codeine-guaifenesin 10-100 mg/5 mL 10 mL PO Q6H PRN 300 mL 0RF cough 10 days albuterol sulfate 90 mcg/actuation 2 inhalations inhalation Q6H PRN 18 grams 12RF shortness of breath or wheezing 30 days J44.9 - Chronic obstructive pulmonary disease, unspecified inhalational spacing device (Aerochamber MV spacer) As directed 1 ea 0RF Coding Level of Care Code Est Pt Level 4 (61667) Diagnoses Severe persistent asthma with acute exacerbation J45.51 Asthma complication type: with acute exacerbation Asthma persistence: persistent Asthma severity: severe Chronic allergic rhinitis J30.9 IGGY (obstructive sleep apnea) G47.33 Tracheobronchitis J40 Time Spent (min) 16
--- OUTSIDE RECORDS SUMMARY | 2024-11-18 14:13 | XMS_ITS | Clinical Summary ---
Author Organization [facility] [address] [place] [address] [place] [phone] Phone Care Team Providers Care Laborer Hoisting Name Role Phone Elda Sanchez MD Primary Care Prov ider Allergies Active Allergy Reactions Criticality Noted Date Comments Ciprofloxacin Hives,Rash High 01/31/2015 Medications albuterol HFA (PROAIR HFA ; PROVENTIL HFA ; VENTOLIN HFA) 90 mcg/actuation inhaler Inhale 2 puffs by mouth every 4 (four) hours if needed for shortness of breath or wheezing. 8 Active azelastine 205.5 mcg (0.15 %) spray,non-aerosol Administer 2 sprays into each nostril 2 (two) times a day. 1 Active azelastine-flutica sone 137-50 mcg/spray spray,non-aerosol Administer 1 spray into each nostril 2 (two) times a day. 2 Active brimonidine (ALPHAGAN) 0.2 % ophthalmic solution Administer 1 drop into both eyes 2 (two) times a day. 8 Active cetirizine (ZyrTEC) 10 mg tablet Take 1 tablet (10 mg total) by mouth 1 (one) time each day. 3 Active citalopram (CeleXA) 40 mg tablet Take 1 tablet (40 mg total) by mouth 1 (one) time each day. 9 Active clotrimazole (LOTRIMIN) 1 % cream Apply topically 1 (one) time each day. for 6 weeks Apply to the bottom of her skin for itchiness twice daily 3 Active colestipoL (COLESTID) 1 gram tablet Take 3 tablets (3 g total) by mouth 2 (two) times a day with meals. 3 Active diclofenac (VOLTAREN) 1 % topical gel Apply 4 g topically 2 (two) times a day. 4 Active dorzolamide-timolo L (COSOPT) 22.3-6.8 mg/mL ophthalmic solution Administer 1 drop into both eyes 2 (two) times a day. 1 Active dulaglutide (Trulicity) 0.75 mg/0.5 mL pen injector injection Inject 0.5 mL (0.75 mg total) under the skin 1 (one) time per week. 4 Active EPINEPHrine (EpiPen 2-Taras) 0.3 mg/0.3 mL injection Inject 0.3 mL (0.3 mg total) as directed if needed for anaphylaxis. 1 Active famotidine (PEPCID) 40 mg tablet Take 1 tablet (40 mg total) by mouth at bedtime. 2 Active flurbiprofen (OCUFEN) 0.03 % ophthalmic solution Administer 1 drop into both eyes 1 (one) time. 0 Active fluticasone propionate (FLONASE) 50 mcg/actuation nasal spray Administer 2 sprays into affected nostril(s) 1 (one) time each day. 1 Active blood sugar diagnostic (FreeStyle Lite Strips) test strip 1 each by Other route 2 (two) times a day. 3 Active blood-glucose meter kit 1 each by Not Applicable route 1 (one) time each day. for 360 days 9 Active umeclidinium (Incruse Ellipta) 62.5 mcg/actuation inhalation Inhale 1 puff by mouth 1 (one) time each day. 0 Active pen needle, diabetic (BD ULTRA-FINE SHORT PEN NEEDLE MISC) 1 each by Not Applicable route 1 (one) time each day. 31G X 8 MM 0 Active lidocaine (LIDODERM) 5 % patch Place 1 patch on the skin 1 (one) time each day. for 112 days. Apply for no more than 12 hours in any 24 hour period 4 Active mometasone-formote rol (DULERA 200) 200-5 mcg/actuation inhaler Inhale 1 puff by mouth 2 (two) times a day. 0 Active pregabalin (LYRICA) 150 mg capsule Take 1 capsule (150 mg total) by mouth 2 (two) times a day. 3 Active simethicone (MYLICON,GAS-X) 180 mg capsule Take 1 capsule (180 mg total) by mouth 2 (two) times a day if needed for flatulence. for up to 90 days 1 Active traZODone (DESYREL) 100 mg tablet Take 1 tablet (100 mg total) by mouth at bedtime as needed. 1 Active triamcinolone (KENALOG) 0.1 % cream Apply 80 g topically 1 (one) time each day. with Cerave cream. Apply daily from neck down after showers. Not to be used on the face 0 Active white petrolatum (Vaseline White Petroleum) ointment Apply 1 applicator topically if needed. for Dry Skin for up to 360 days 3 Active busPIRone (BUSPAR) 5 mg tablet Take 1 tablet (5 mg total) by mouth 2 (two) times a day. Active cholecalciferol (VITAMIN D-3) 50 mcg (2,000 unit) capsule Take 1 capsule (2,000 Units total) by mouth 1 (one) time each day. 90 each 1 4 025 Active atorvastatin (LIPITOR) 80 mg tablet Take 1 tablet (80 mg total) by mouth 1 (one) time each day. 90 each 1 4 025 Active metFORMIN XR (GLUCOPHAGE-XR) 500 mg 24 hr tabletIndications: Type 2 diabetes mellitus with diabetic polyneuropathy (CMS/HCC) TAKE 1 TABLET BY MOUTH TWICE A DAY 180 tablet 1 5 Active Active Problems Problem Noted Date Diagnosed Date Anxiety 05/26/2024 Overview (05/26/2024): Sees BH Asthma 05/26/2024 Overview (05/26/2024): Severe persistant, followed by PULM Hyperlipidemia 05/26/2024 Assessment & Plan (07/05/2024 1:32 PM EST): Given the patients cardiac risk profile and, the patient requires an LDL cholesterol of less than 70. I have instructed the patient on the principles of a low cholesterol diet and the importance of regular exercise. Continue atorvastatin 40 mg daily. Will recheck a lipid profile. Orders: Microalbumin creatinine urine ratio; Future Comprehensive metabolic panel; Future Hemoglobin A1c; Future Lipid panel with reflex to direct LDL; Future Major depression 05/26/2024 Overview (05/26/2024): CHD Positive PPD 05/26/2024 Overview (05/26/2024): 21 mm Primary hypertension 05/26/2024 Assessment & Plan (07/05/2024 1:32 PM EST): At the time of this visit, the blood pressure is well controlled on diet. The patient is instructed to follow a low sodium diet and to follow up in 4 months. Orders: Microalbumin creatinine urine ratio; Future Comprehensive metabolic panel; Future Hemoglobin A1c; Future Lipid panel with reflex to direct LDL; Future Class 1 obesity due to exces s calories with serious comorbidity and body mass index (BMI) of 32.0 to 32.9 in adult 05/26/2024 Neuropathy 02/24/2021 Chronic diarrhea 02/07/2020 Snoring 08/22/2019 Overview (05/26/2024): Patient has been contacted by Sleep Medicine services to schedule a in lab sleep study x with no response. Message left on voicemail with sleep lab phone # to encourage patient to have testing done. No call back. Type 2 diabetes mellitus wit h diabetic polyneuropathy, without long-term current use of insulin 06/03/2019 Cutaneous mastocytosis 08/15/2017 Osteopenia 08/15/2017 Overview (05/26/2024): DEXA 03/20/2015 LUMBAR T -1.3, L femoral neck T-1.1 Pulmonary nodules 08/15/2017 Overview (05/26/2024): CT 02/09/2015 CT in 2020 unchanged. No further work up needed Thoracic spondylosis 08/15/2017 Vitamin D deficiency 08/15/2017 Obesity (BMI 30-39.9) 07/20/2016 Elevated alkaline phosphatase level 07/05/2016 Degenerative arthritis of knee, bilateral 2015 Type 2 diabetes mellitus without complication Chronic pain 05/21/2015 Neck pain 05/21/2015 Allergic rhinoconjunctivitis 01/02/2015 Overview (05/26/2024): Sees Allergy and PULM Ovarian cyst 01/08/2014 Encounters Date Type Department Care Team Description 11/04/2024 3:00 PM EDT Treatment [address] [phone] Jakub Kwong, ANUJ Primary osteoarthritis of both knees (Primary Dx); Chronic pain of left knee 10/17/2024 2:00 PM EST Evaluation [address] [phone] Gerber Smith, PT Primary osteoarthritis of both knees; Chronic pain of left knee 09/27/2024 11:00 AM EST Consult Orthopedic Surgery [facility] [address] [phone] Lacy Mark PA Primary osteoarthritis of both knees (Primary Dx); Chronic pain of left knee from Last 3 Months Immunizations Name Administration Dates Next Due Influenza Quadravalent, MDCK , 0.5ml, preservative free (Flucelvax) 6mo and older 05/03/2023,05/31/2022 Influenza trivalent, with pr eservative (Fluzone; Afluria) 6mo and older 07/05/2016,05/11/2015 Influenza, Unspecified 07/23/2021 Moderna SARS-CoV-2 COVID-19, mRNA, LNP-S, preservative free 02/15/2021,12/11/2020,11/13/2020 PPD Test 01/04/2017 Pneumococcal polysaccharide 23 valent (Pneumovax 23) 2yo and older 01/08/2014 Tdap Tetanus diptheria acell ular pertussis (Boostrix; Adacel) 7yo and older 01/08/2014 Surgical History Surgery Date Site/Laterality Comments PARTIAL HYSTERECTOMY 2005 PROCEDURE: TN SUPRACERVICAL ABDL HYSTER W/WO RMVL TUBE OVARY; COMMENT: fibroids CHOLECYSTECTOMY 2005 PROCEDURE: HISTORICAL CHOLECYSTECTOMY SECTION PROCEDURE: HISTORICAL DELIVERY; COMMENT: X3 UPPER GASTROINTESTINAL ENDOSCOPY 04/02/2020 PROCEDURE: TN UPPER GI ENDOSCOPY PERFORMED; COMMENT: Visually normal, duodenal biopsies obtained to evaluate chronic diarrhea. COLONOSCOPY 04/02/2020 PROCEDURE: HISTORICAL COLONOSCOPY; COMMENT: Visually normal, random biopsies obtained to evaluate chronic diarrhea. Medical History Medical History Date Comments Esophageal reflux 08/15/2017 DX:Esophageal reflux Allergic rhinoconjunctivitis 01/02/2015 DX: Allergic rhinoconjunctivitis; COMMENT: Sees Allergy and PULM Anxiety DX:Anxiety; COMM ENT: Sees Asthma DX:Asthma; COMME NT: Severe persistant, followed by PULM Chronic pain 05/21/2015 DX:Chronic pain Cutaneous mastocytosis 08/15/2017 DX:Cutane ous mastocytosis Degenerative arthritis of knee, bilateral 2015 DX:Degenerative arthritis of knee, bilateral Elevated alkaline phosphatase level 07/05/2016 DX:Elevated alkaline phosphatase level HTN (hypertension) DX:HTN (hyper tension) Hyperlipidemia DX:Hyperlipidemi a Major depression DX:Major depres teofilo; COMMENT: CHD Neck pain 05/21/2015 DX:Neck pain Obesity (BMI 30-39.9) 07/20/2016 DX:Obesity (BMI 30-39.9) Osteopenia 08/15/2017 DX:Osteopenia; C OMMENT: DEXA 03/20/2015 LUMBAR T -1.3, L femoral neck T-1.1 Ovarian cyst 01/08/2014 DX:Ovarian cyst Positive PPD DX:Positive PPD; COMMENT: 21 mm Pulmonary nodules 08/15/2017 DX:Pulmonary n odules; COMMENT: CT 02/09/2015 Thoracic spondylosis 08/15/2017 DX:Thoracic spondylosis Vitamin D deficiency 08/15/2017 DX:Vitamin D deficiency Neuropathy DX:Neuropathy Diabetes mellitus (CMS/HCC) DX:D iabetes mellitus (HCC) Family History Medical History Relation Name Comments Diabetes Brother Hypertension Father DM, cataract, H LD Coronary artery disease Mother --di ed in her 50s, HTN, DM, HLD, glaucoma Colon cancer Neg Hx Relation Name Status Comments Brother Father Mother Social History Tobacco Use Types Packs/Day Years Used Date Smoking Tobacco: Never Smokeless Tobacco: Never Tobacco Cessation:Counseling Given: Not Answered Alcohol Use Standard Drinks/Week Comments No 0 (1 standard drink = 0.6 oz pur e alcohol) Housing Instability Answer Date Recorde d Are you worried that in the next 2 months you may not have stable housing? Yes 07/04/2024 Food Access & Nutrition Answer Date Rec orded Do you have access to a vari ety of food including fruits and vegetables? Yes 07/04/2024 Access to Healthcare Answer Date Record ed Within the last 3 months, ho w many times did you visit the emergency department for your medical care? 1 07/04/2024 Health Literacy Answer Date Recorded How often do you need to hav e someone help you when you read instructions, pamphlets, or other written material from your doctor or pharmacy? Sometimes 07/04/2024 Caregiver: How often do you need to have someone help you when you read instructions, pamphlets, or other written material from your doctor or pharmacy? Not on file 07/04/2024 Financial Risk Answer Date Recorded How hard is it for you to pa y for the very basics like food, housing, medical care, and air conditioning / heating? Somewhat hard 07/04/2024 Transportation Answer Date Recorded Has the lack of transportati on kept you from meetings, work, or from getting things needed for daily living? Yes Has the lack of transportati on kept you from medical appointments or from getting medications? Yes 07/04/2024 Social Isolation Answer Date Recorded How often do you feel lonely or isolated from those around you? Sometimes 07/04/2024 Food Risk Answer Date Recorded Within the past 12 months we worried whether our food would run out before we got money to buy more. Often true 07/04/2024 Within the past 12 months th e food we bought just didn't last and we didn't have money to get more. Often true 07/04/2024 Dependent Care Answer Date Recorded Do you need help finding or paying for care for your loved ones. For example, child care specialist or elderly care for an older adult? No 07/04/2024 Education Answer Date Recorded Do you think completing more education or training, like finishing a GED, going to college, or learning a trade, would be helpful for you? No 07/04/2024 Employment and Income Answer Date Recor ded During the last four weeks, have you been actively looking for work? No 07/04/2024 Living Situation Answer Date Recorded What is your living situation? 1 09/03/2023 Comments No Sex and Gender Information Value Date Recorded Sex Assigned at Not on file Legal Sex Female 5:20 PM EST Gender Identity Not on file Sexual Orientation Not on file Obstetrics History Last Filed Vital Signs Vital Sign Reading Time Taken Comments Blood Pressure 120/70 07/04/2024 11:29 AM EST Pulse 78 07/04/2024 11:00 AM EST Temperature 36 ??C (96.8 ??F) 07/04/2024 11: 00 AM EST Respiratory Rate 16 07/04/2024 11:0 0 AM EST Oxygen Saturation 99% 05/03/2023 2:1 5 PM EDT at rest, room air Inhaled Oxygen Concentration - - Weight 83 kg (183 lb) 09/27/2024 10:41 AM EST Height 160 cm (5' 3 ) 09/27/2024 10:41 AM EST Body Mass Index 32.42 09/27/2024 10:41 AM EST Plan of Treatment Upcoming Encounters Date Type Department Care Team (Late st Contact Info) Description 11/18/2024 3:00 PM EDT Treatment [facility] [address] [phone] Polly Shane, MAYDA 11/25/2024 3:00 PM EDT Treatment [facility] [address] [phone] Jakub Kwong, [employer] 12/02/2024 2:00 PM EDT Treatment [facility] [address] [phone] Jakub Kwong PTA 12/09/2024 2:00 PM EDT Treatment [facility] [place] 175 [facility] [address] [place] [phone] Gerber Smith, MAYDA 12/25/2024 11:00 AM EDT Office Visit [facility] [place] 160 175 [facility] 160 [place] [phone] Lacy Mark PA 175 [facility] 160 [place] [address] 03/17/2025 2:10 PM EDT Appointment Radiology Department [address] [phone] Health Maintenance Due Date Last Done Comments Diabetes: Annual Retina Eye Exam 1983 Hepatitis B Vaccines (1 of 3 - 19+ 3-dose series) 1992 Zoster Vaccines (1 of 2) 1992 Pneumococcal Vaccine: 50+ Years (2 of 2 - PCV) 01/08/2015 01/08/2014 Pneumococcal Vaccine: Pediatrics (0 to 5 Years) and At-Risk Patients (6 to 64 Years) (2 of 2 - PCV) 01/08/2015 01/08/2014 HIV Screening 07/30/2022 DTaP,Tdap,and Td Vaccines (2 - Td or Tdap) 01/09/2024 01/08/2014 COVID-19 Vaccine ( season) 2024 11/08/2022, 06/17/2021, 02/15/2021, Additional history exists Depression Screening 08/24/2024 08/24/2023 Diabetes: Blood Sugar Control Test (HGBA1C) 01/01/2025 07/04/2024, 01/16/2024, 01/16/2024 Diabetes: Annual Foot Exam 01/10/2025 01/11/2024 Diabetes: Annual Urine Albumin-Creatinine Ratio (uACR) 07/04/2025 07/04/2024, 01/19/2023 Diabetes: Annual GFR (Glomerular Filtration Rate) 07/04/2025 07/04/2024, 11/23/2023 Hypertension/CHF/CAD Annual BMP Blood Test 07/04/2025 07/04/2024, 11/23/2023 Social Influencers of Health Screening 07/04/2025 07/04/2024 Breast Cancer Screening 03/07/2026 03/07/20 24, 03/07/2024, 03/06/2023, Additional history exists Cholesterol Screening (Lipid Panel) 07/04/2029 07/04/2024, 11/23/2023 Colorectal Cancer Screening: Colonoscopy 04/02/2030 04/02/2020 Influenza Vaccine Discontinued 05/03/2023, , 07/23/2021, Additional history exists Hepatitis C Screening Completed 01/16/2024 HIB Vaccines Aged Out No longer eligi ble based on patient's age to complete this topic HPV Vaccines Aged Out No longer eligi ble based on patient's age to complete this topic Hepatitis A Vaccines Aged Out No long er eligible based on patient's age to complete this topic IPV Vaccines Aged Out No longer eligi ble based on patient's age to complete this topic MMR Vaccines Aged Out No longer eligi ble based on patient's age to complete this topic Meningococcal ACWY Vaccine Aged Out N o longer eligible based on patient's age to complete this topic Meningococcal B Vacine Aged Out No lo nger eligible based on patient's age to complete this topic RSV Immunization Patients Under 20 months Aged Out No longer eligible based on patient's age to complete this topic Varicella Vaccines Aged Out No longer eligible based on patient's age to complete this topic Goals Goal Patient Goal Type Associated Problems Recent Progress Patient-Stated? Author PT LTGs General No Gerber Smith, MAYDA Note: Pt will ascend/descend 12 steps with no knee pain reported Pt will complete 6 minute walk test with no knee pain reported Pt will be independent with HEP Procedures Procedure Name Priority Date/Time Associated Diagnosis Comments MICROALBUMIN CREATININE URINE RATIO Routine 07/04/2024 12:03 PM EST DM (diabetes mellitus) with complications (CMS/HCC) Primary hypertension Mixed hyperlipidemia COMPREHENSIVE METABOLIC PANEL Routine 07/04/2024 12:03 PM EST DM (diabetes mellitus) with complications (CMS/HCC) Primary hypertension Mixed hyperlipidemia HEMOGLOBIN A1C Routine 07/04/2024 12:03 PM EST DM (diabetes mellitus) with complications (CMS/HCC) Primary hypertension Mixed hyperlipidemia LIPID PANEL WITH REFLEX TO DIRECT LDL Routine 07/04/2024 12:03 PM EST DM (diabetes mellitus) with complications (CMS/HCC) Primary hypertension Mixed hyperlipidemia SCREENING MAMMOGRAPHY BI 2-VIEW BREAST INC CAD Routine 03/07/2024 2:02 PM EDT Encounter for screening mammogram for malignant neoplasm of breast HEPATITIS C SCREENING Routine 01/16/2024 DIABETES FOOT EXAM Routine 01/11/2024 DEPRESSION SCREENING Routine 08/24/2023 COLONOSCOPY Routine 04/02/2020 from Last 3 Months or Most Recently Relevant to Health Maintenance Results * (ABNORMAL) Lipid panel with reflex to direct LDL (07/04/2024 12:03 PM EST) Cholesterol 252(H) 0 - 200 mg/dL LAB CHEMISTRY METHOD 07/04/2024 4:20 PM [facility] Triglycerides 125 0 - 150 mg/dL LAB CHEMISTRY METHOD 07/04/2024 4:20 PM [facility] HDL 76 >=40 mg/dL LAB CHEMISTRY METHOD 07/04/2024 4:20 PM [facility] LDL Calculated 151(H) 0 - 100 mg/dL LAB CHEMISTRY METHOD 07/04/2024 4:20 PM [facility] VLDL Cholesterol Jf 25 mg/dL LAB CHEMISTRY METHOD 07/04/2024 4:20 PM [facility] Non HDL Chol. (LDL+VLDL) 176(H) <145 mg/dL LAB CHEMISTRY METHOD 07/04/2024 4:20 PM [facility] Chol/HDL Ratio 3.3 0.0 - 4.4 LAB CHEMISTRY METHOD 07/04/2024 4:20 PM EST [facility] Blood Venous blood specimen / Unknown Venipuncture / Unknown 07/04/2024 12:03 PM EST 07/04/2024 12:03 PM EST Elda Sanchez MD LAB BLOOD ORDERABL ES Final Result [facility] [address] [place] [address], [place] [phone] * Microalbumin creatinine urine ratio (07/04/2024 12:03 PM EST) Creatinine, Urine 131.0 mg/dL LAB CHEMISTRY METHOD 07/04/2024 5:18 PM EST [facility] Microalb, Ur 19.7 0.0 - 29.0 mg/L LAB CHEMISTRY METHOD 07/04/2024 5:18 PM EST [facility] Microalb/Creat Ratio 15 <30 mg/g creat LAB CHEMISTRY METHOD 07/04/2024 5:18 PM EST [facility] Urine Urine specimen from urethra / Unknown Non-blood Collection / Unknown 07/04/2024 12:03 PM EST 07/04/2024 12:03 PM EST Elda Sanchez MD LAB URINE ORDERABL ES Final Result [facility] [address] [place] [address], [place] [phone] * (ABNORMAL) Hemoglobin A1c (07/04/2024 12:03 PM EST) Hemoglobin A1C 6.9(H) <6.5 % LAB CHEMISTRY METHOD 07/04/2024 10:27 PM EST [facility] Mean Bld Glu Estim. 151 mg/dL LAB CHEMISTRY METHOD 07/04/2024 10:27 PM [facility] Blood Venous blood specimen / Unknown Venipuncture / Unknown 07/04/2024 12:03 PM EST 07/04/2024 12:03 PM EST us Elda Sanchez MD LAB BLOOD ORDERABL ES Final Result [facility] [address] [place] [address], * (ABNORMAL) Comprehensive metabolic panel (07/04/2024 12:03 PM EST) Sodium 140 133 - 145 mmol/L LAB CHEMISTRY METHOD 07/04/2024 4:20 PM [facility] Potassium 4.2 3.5 - 5.5 mmol/L LAB CHEMISTRY METHOD 07/04/2024 4:20 PM [facility] Chloride 105 96 - 110 mmol/L LAB CHEMISTRY METHOD 07/04/2024 4:20 PM [facility] CO2 30 21 - 32 mmol/L LAB CHEMISTRY METHOD 07/04/2024 4:20 PM [facility] Anion Gap 5 3 - 11 LAB CHEMISTRY METHOD 07/04/2024 4:20 PM [facility] Glucose 98 70 - 100 mg/dL LAB CHEMISTRY METHOD 07/04/2024 4:20 PM [facility] BUN 10 5 - 25 mg/dL LAB CHEMISTRY METHOD 07/04/2024 4:20 PM [facility] Creatinine 0.66 0.50 - 1.10 mg/dL LAB CHEMISTRY METHOD 07/04/2024 4:20 PM [facility] eGFR 107 >=60 mL/min/1. 73m2 LAB CHEMISTRY METHOD 07/04/2024 4:20 PM [facility] Comment:Calculation based on the??Chronic Kidney Disease Epidemiology Collaboration (CKD-EPI) equation refit??without adjustment for race. BUN/Creatinine Ratio 15.2 LAB CHEMISTRY METHOD 07/04/2024 4:20 PM [facility] Calcium 9.9 8.5 - 10.5 mg/dL LAB CHEMISTRY METHOD 07/04/2024 4:20 PM [facility] AST (SGOT) 14 10 - 42 unit/L LAB CHEMISTRY METHOD 07/04/2024 4:20 PM [facility] ALT (SGPT) 20 10 - 60 unit/L LAB CHEMISTRY METHOD 07/04/2024 4:20 PM [facility] Alkaline Phosphatase 138(H) 42 - 121 unit/L LAB CHEMISTRY METHOD 07/04/2024 4:20 PM [facility] Total Protein 7.0 6.0 - 8.0 g/dL LAB CHEMISTRY METHOD 07/04/2024 4:20 PM [facility] Albumin 3.9 3.2 - 5.0 g/dL LAB CHEMISTRY METHOD 07/04/2024 4:20 PM [facility] Total Bilirubin 0.5 0.0 - 1.4 mg/dL LAB CHEMISTRY METHOD 07/04/2024 4:20 PM [facility] Blood Venous blood specimen / Unknown Venipuncture / Unknown 07/04/2024 12:03 PM EST 07/04/2024 12:03 PM EST us Elda Sanchez MD LAB BLOOD ORDERABL ES Final Result [facility] [address] [place] [address], * SCREENING MAMMOGRAPHY BI 2-VIEW BREAST INC CAD (03/07/2024 2:02 PM EDT) Anatomical Region Laterality Modality Radiographic Jennifer ging 03/06/2023 1:19 PM EDT Narrative 03/08/2024 8:14 AM EDT This is a summary report. The complete report is available in the patient's medical record. If you cannot access the medical record, please contact the sending organization for a detailed fax or copy. Full field digital screening tomosynthesis mammography, reviewed with CAD and compared to previous. The breasts are composed of fatty and fibroglandular tissue. ??No suspicious mass, architectural distortion or suspicious calcifications are identified. IMPRESSION: : No mammographic evidence of malignancy. BIRADS 1-Negative; N. 5 year breast cancer risk assessment 0.5 % Lifetime breast cancer risk assessment 5.0 % Breast cancer risk category Low (<15%) Procedure Note Cesia Chahal MD - 06/05/2024 This is a summary report. The complete report is available in thepatient's medical record. If you cannot access the medical record, pleasecontact the sending organization for a detailed fax or copy. Full field digital screening tomosynthesis mammography, reviewed with CADand compared to previous. The breasts are composed of fatty andfibroglandular tissue. No suspicious mass, architectural distortion orsuspicious calcifications are identified. IMPRESSION: : No mammographic evidence of malignancy. BIRADS 1-Negative; N. 5 year breast cancer risk assessment 0.5 % Lifetime breast cancer risk assessment 5.0 % Breast cancer risk category Low (<15%) Result [facility] Elda Sanchez MD IMG XR PROCEDURES Final Result * Hepatitis C Screening (01/16/2024) [facility] Hepatitis C Screening abstracted Result [facility] Provider HEALTH MAINTENANCE Final Result * Diabetes Foot Exam (01/11/2024) [facility] Diabetes: Annual Foot Exam abstracted Result [facility] HEALTH MAINTENANCE Final Result * Depression Screening (08/24/2023) [facility] Depression Screening abstracted Result [facility] HEALTH MAINTENANCE Final Result * Colonoscopy (04/02/2020) [facility] [facility] no interpretation , abstracted Anatomical Region Laterality Modality Other Result [facility] HEALTH MAINTENANCE Final Result from Last 3 Months or Most Recently Relevant to Health Maintenance [place] [address] [address] [place] [id number] PLAN Care Teams Laborer Hoisting Relationship Specialty Start Date End Date Elda Sanchez MD [address] [place] [id number] PCP - General Internal Medicine 05/11/22
== END 2024-11-18 13:22 | disposition home or self-care (01) ==
LOC: HO.HPS 12:37
PROVIDERS: PCP Internal Medicine; Visit Provider Hospitalist
DX: J45.51 Severe persistent asthma with (acute) exacerbation (principal); J30.9 Allergic rhinitis, unspecified; G47.33 Obstructive sleep apnea (adult) (pediatric); J40 Bronchitis, not specified as acute or chronic
CPT/HCPCS: 99214

== ENCOUNTER → 2024-11-18 12:36 | Outpatient (BNVA) | payer OTHER, SELFPAY | PROVIDERS: PCP Internal Medicine; Visit Provider Hospitalist | DX: J44.89 Other specified chronic obstructive pulmonary disease (principal); J45.51 Severe persistent asthma with (acute) exacerbation; J30.9 Allergic rhinitis, unspecified; J40 Bronchitis, not specified as acute or chronic; G47.33 Obstructive sleep apnea (adult) (pediatric) | CPT/HCPCS: 99212 ==

== ENCOUNTER 2025-03-25 12:16 | Outpatient (AMB) | payer OTHER, SELFPAY ==
[2025-03-25 12:35] VITALS: BP 128/62; PULSE 75; O2SAT 97; BMI 32.5
--- NOTE | 2025-03-25 12:35 | A.OFFVIS_ITS ---
Vital Signs 03/25/25 12:35 Height 5 ft 2 in Weight 177 lb 9 oz BMI 32.5 BP 128/62 Blood Pressure Location Lt brachial Position Sitting Pulse 75 Pulse Source Pulse Oximeter Pulse Oximetry (%) 97 Oxygen Delivery Method Room Air Intake Visit Reasons: joint pain Intake Note: Patient last seen by Emy Pierre on 10/18/23. Presents today for Osteoarthritis follow up and joint pain. Patient complains of bilateral knee and back pain today. She needs refills on the meds prescribed here. Accompanied by: Son Allergies ciprofloxacin Allergy (Severe, Verified 03/25/25 12:41) Rash and Itching Medication List - Last Reconciled 03/25/25 by Day Gage MD albuterol sulfate 2.5 mg (3 mL) inhalation Q6H PRN 30 days albuterol sulfate 90 mcg/actuation 2 inhalations inhalation Q6H PRN 30 days atorvastatin 40 mg PO DAILY azelastine-fluticasone 137-50 mcg/spray (Dymista) 1 spray intranasal BID 30 days benzonatate 200 mg PO TID PRN 30 days benzonatate 200 mg PO BID PRN 30 days budesonide 0.5 mg inhalation DAILY budesonide-formoterol 160-4.5 mcg/actuation (Symbicort) 2 puffs inhalation BID 30 days cetirizine 10 mg PO DAILY 30 days citalopram 0 mg PO codeine-guaifenesin 10-100 mg/5 mL 10 mL PO Q6H PRN 10 days colestipol 3 grams PO BID dextromethorphan-guaifenesin 5-100 mg/5 mL (Robitussin Cough-Chest Congestion DM) 10 mL PO Q6H PRN 30 days dorzolamide-timolol 22.3-6.8 mg/mL 1 drp ophthalmic (eye) BID doxycycline hyclate 100 mg PO BID 10 days dulaglutide 0.75 mg subcut QWEEK epinephrine 1 IM DIRECTED famotidine (Pepcid) 40 mg PO BEDTIME 30 days fluticasone furoate-vilanterol 100-25 mcg/dose (Breo Ellipta) 1 inh inhalation DAILY 30 days fluticasone propion-salmeterol 232-14 mcg/actuation (AirDuo RespiClick) 1 inh inhalation BID gabapentin 800 mg PO TID glipizide ER 10 mg PO BID hydroxyzine pamoate 50 mg PO BID PRN inhalational spacing device (Aerochamber MV spacer) As directed liraglutide 1.2 mg subcut DAILY meloxicam 7.5 mg PO BID metformin ER 500 mg PO BID montelukast (Singulair) 10 mg PO BEDTIME 30 days nebulizers As directed prazosin 2 mg PO BEDTIME roflumilast (Daliresp) 250 mcg PO DAILY 30 days tiotropium bromide 2.5 mcg/actuation 2 puffs PO DAILY trazodone 50 mg PO BEDTIME PRN umeclidinium 62.5 mcg/actuation 1 inh inhalation DAILY HPI Comments Details: Patient is a 49-year-old female with hyperlipidemia, depression, Diabetes, ast hma, polyarticular OA (hands, knees, degenerative disease of the spine) and fibromyalgia here today for follow up Interval History: Patient last seen 10/18/23 with Emy Pierre - Completed a prednisone course and had some improvement in her pain - Leflunomide was added for ?inflammatory arthritis despite no evidence of synovitis on exam and normal inflammatory markers Since then she was lost to follow up due to her provider leaving the practice Today - Stopped leflunomide 6 months ago - Continues to complain of widespread pain especially in her hands and knees - Pain is usually worse at the end of the day or after using the joint - Feels like the base of her thumb gets swollen sometimes - Has stiffness and feels like it lasts all day Rheumatologic History: OA/fibromyalgia - tried prednisone and leflunomide with some help but still had persistent pain - ultimately diagnosed with OA based on XRs and exam and taken off DMARDs Initial History: The patient presents for evaluation of widespread pains. Our medical imaging technologist, Kaya, translates for us. The patient has a 25-30 year history of widespread pains. She had been evaluated at [facility] about [address] Esteban. She was thought to have fibromyalgia and osteoarthritis. Once again she describes pains in the knees, shoulders, neck, lower back, hands mostly around the base of the thumbs, and the feet. She remains on a host of medicines including citalopram, gabapentin, and trazodone. These medicines do help her sleep but do not help too much the pain. In the past she also was taking ibuprofen but that bothered her stomach. She was switched to meloxicam at 7.5 mg b.i.d. but still has stomach upset including pain and loose stools. Current Rheumatology Medication(s): [facility] Medical History (Updated 03/25/25 @ 13:29 by Day Gage MD) Inflammatory arthropathy Long-term use of immunosuppressant medication Intermittent pain and swelling of hand Chronic bronchitis Morbid obesity Diabetes mellitus type 2 in obese Disc degeneration, lumbar Spinal stenosis, lumbar Spondylosis of lumbar spine Spondylosis of thoracic spine Spondylosis of cervical spine IGGY (obstructive sleep apnea) Chronic allergic rhinitis Asthma Surgical History Hx of endoscopy History of partial hysterectomy Hx of colonoscopy Hx of cholecystectomy History of 3 sections Family History Mother Coronary artery disease Hypertension Diabetes High cholesterol Glaucoma Father Hypertension Diabetes High cholesterol Social History Alcohol intake: current Alcohol intake frequency: does not drink Patient Tobacco Use Status: Never used Tobacco Review of Systems Const Details: Review of Systems Constitutional: Denies fever, chills, weight loss ENT: Denies vision changes, eye pain or eye redness, dental caries, dry mouth GI: Denies nausea, vomiting, diarrhea, abdominal pain, change in BM Pulm: Denies SOB, ERIC, hemoptysis, wheezing Cards: Denies chest pain, palpitations Skin: Denies Raynaud's, rash, nail changes, photosensitivity, RECORDS MANAGEMENT ASSISTANT: Denies headaches, weakness, paresthesias, recurrent falls MSK: as per HPI All other systems reviewed and are unremarkable except noted above Physical Exam Exam Exam: Vital signs reviewed Physical Examination CONSTITUITIONAL Patient alert and cooperative. Well appearing and in no apparent painful distress HEENT Conjunctiva and sclera clear. No lymphadenopathy. MSK Hands * Able to make a fist bilaterally * TTP of the 1st CMC joints bilaterally * TTP of the DIPs and PIPs * Herbedens nodes noted bilaterally as well as some early Bouchards nodes Wrists * Right Wrist: Full ROM. 70 degrees of wrist flexion, 80 degrees of wrist extension. No swelling or TTP * Left Wrist: Full ROM. 70 degrees of wrist flexion, 80 degrees of wrist extension. No swelling or TTP Elbows * Right Elbow: Full ROM. No swelling or TTP. TTP of the medial and lateral epicondyles * Left Elbow: Full ROM. No swelling or TTP. TTP of the medial and lateral epicondyles Shoulders * Right shoulder: Full ROM. No swelling noted. No TTP of the AC joint, subacromial bursa or posterior shoulder * Left shoulder: Full ROM. No swelling noted. No TTP of the AC joint, subacromial bursa or posterior shoulder Hip bursa: No tenderness to palpation bilaterally Knees * Full ROM bilaterally with mild TTP of the medial joint line and TTP of bilateral pes anserine bursa Ankles * Right ankle: Good ankle dorsiflexion and plantar flexion. No swelling. No TTP of the ankle joint * Left ankle: Good ankle dorsiflexion and plantar flexion. No swelling. No TTP of the ankle joint Feet * Right foot: Negative squeeze test * Left foot: Negative squeeze test Tender points? * Tenderness to palpation of the bilateral trapezius, supraspinatus, anterior costochondral junctions, bilateral suboccipital muscle insertions SKIN No rashes Vital Signs: Last Vital Signs Pulse 75 03/25/25 12:35 BP 128/62 03/25/25 12:35 Pulse Ox 97 03/25/25 12:35 Oxygen Delivery Method Room Air 03/25/25 12:35 BMI result Body Mass Index 32.5 Office Procedures AMB Joint Injection/Aspiration Joint Injection/Aspiration Details: Procedure was explained to the patient and informed consent was obtained. ? Risks associated with the procedure were discussed with the patient including but not limited to bleeding, infection, drug reactions and reactions to the topical anesthetic. Patient made aware of signs to look out for infectious complications. The area of interest was identified and confirmed with patient. ?This was subsequently cleaned with chlorhexidine x 2. ? The area was then anesthetized using ethyl chloride spray. 40 mg Kenalog with 1 cc 1% lidocaine was injected without issue. ?Minimal to no bleeding. ?Patient tolerated procedure. Primary Site: right knee Prep: site was prepped using aseptic technique and ethochloride spray was applied Injected: 40 mg of, Kenalog, with 1 mL of, 1% plain lidocaine and in the joint Approach Used: anterior Procedure: The patient tolerated the procedure well Coding 51064 - Large joint Procedure code (CPT) selection complete AMB Joint Injection/Aspiration Joint Injection/Aspiration Details: Procedure was explained to the patient and informed consent was obtained. ? Risks associated with the procedure were discussed with the patient including but not limited to bleeding, infection, drug reactions and reactions to the topical anesthetic. Patient made aware of signs to look out for infectious complications. The area of interest was identified and confirmed with patient. ?This was subsequently cleaned with chlorhexidine x 2. ? The area was then anesthetized using ethyl chloride spray. 40 mg Kenalog with 1 cc 1% lidocaine was injected without issue. ?Minimal to no bleeding. ?Patient tolerated procedure. Primary Site: left knee Prep: site was prepped using aseptic technique and ethochloride spray was applied Injected: 40 mg of, Kenalog, with 1 mL of and 1% plain lidocaine Approach Used: anterior Procedure: The patient tolerated the procedure well Coding 03576 - Large joint Procedure code (CPT) selection complete Office Meds lidocaine (PF) 10 mg/mL (1 %) injection solution Performing Provider: Day Gage MD Performing Location: [facility] [place] [facility] Administered by: Cherry Rodriguez RN on 03/25/25 13:20 Dose Route Admin Location Dispensed Lot Number Expiration Date [facility] [employer] 1 mL Infiltration right knee 2 mL [id number] 01/18/27 36284-284-93 FR [employer] Total Dispensed Waste 2 mL 50 % Kenalog 40 mg/mL suspension for injection Performing Provider: Day Gage MD Performing Location: [facility] [place] [facility] Administered by: Cherry Rodriguez RN on 03/25/25 13:20 Dose Route Admin Location Dispensed Lot Number Expiration Date [facility] [employer] 40 mg intra-articular right knee 1 mL [id number] 02/17/26 [address]- 1 [employer] Total Dispensed Waste 1 mL 0 % lidocaine (PF) 10 mg/mL (1 %) injection solution Performing Provider: Day Gage MD Performing Location: [facility] [place] [facility] Administered by: Cherry Rodriguez RN on 03/25/25 13:20 Dose Route Admin Location Dispensed Lot Number Expiration Date [facility] [employer] 1 mL Infiltration left knee 2 mL [id number] 01/18/27 19799-282-99 [employer] Total Dispensed Waste 2 mL 50 % Kenalog 40 mg/mL suspension for injection Performing Provider: Day Gage MD Performing Location: [facility] [place] [facility] Administered by: Cherry Rodriguez RN on 03/25/25 13:20 Dose Route Admin Location Dispensed Lot Number Expiration Date [facility] [employer] 40 mg intra-articular left knee 1 mL [id number] 02/17/26 [address]-1 [employer] Total Dispensed Waste 1 mL 0 % Results Reviewed Results Reviewed: Laboratory Tests 09/13/23 11:00 WBC 6.7 Hgb 12.0 Hct 38.1 Plt Count 400 D ESR 11 Sodium 140 Potassium 3.4 Chloride 104 Carbon Dioxide 29 BUN 10 Creatinine 0.66 AST 11 ALT 12 Alkaline Phosphatase 111 C-Reactive Protein 0.41 Rheumatology Labs 09/13/23 11:00 Rheumatoid Factor < 13.0 Cycl Citrul Peptide IgG <16 PATI Screen NEGATIVE Sm (Nesbitt) Antibody <1.0 NEG SM/BAG BAILER IgG Antibody <1.0 NEG Assessment & Plan Assessment & Plan (1) Fibromyalgia: Code(s): M79.7 - Fibromyalgia Category: Medical Plan: #Fibromyalgia Patient is a 49 y.o. female with fibromyalgia and OA here today for follow up Exam and history is consistent with fibromyalgia There is no obvious synovitis on examination Discussed with patient and her son that there is no cure or treatment for fibromyalgia Already on gabapentin 800mg tid Plan - Encouraged exercise and stretches - Can consider flexeril or duloxetine in the future - RTC 6 months (2) Osteoarthritis of knees, bilateral: Code(s): M17.0 - Bilateral primary osteoarthritis of knee Category: Medical Qualifiers: Osteoarthritis type: primary Qualified Code(s): M17.0 - Bilateral primary osteoarthritis of knee Plan: #Bilateral knee OA S/p bilateral knee steroid injection Plan I spent 20 minutes reviewing the record and labs, taking a history, examining the patient, discussing the treatment plan, ordering diagnostic work up and documenting in the medical record Orders: Orders AMB Joint Injection/Aspiration Today M17.0 - Bilateral primary osteoarthritis of knee AMB Joint Injection/Aspiration Today M17.0 - Bilateral primary osteoarthritis of knee Coding Level of Care Code Est Pt Level 3 (95423) Complex EM visit Add On G2211 Diagnoses Fibromyalgia M79.7 Primary osteoarthritis of both knees M17.0 Osteoarthritis type: primary CPT Codes Coding - 52626 Large joint: 20430 - Large joint ([id number]) Coding - 26663 Large joint: 24381 - Large joint ([id number])
--- OUTSIDE RECORDS SUMMARY | 2025-03-25 12:57 | XMS_ITS | Clinical Summary ---
Author Organization [facility] [address] Address [address] [place] [address] Phone Care Team Providers Care Circulating Nurse Name Role Phone Elda Sanchez MD Primary Care Prov ider Allergies Active Allergy Reactions Criticality Noted Date Comments Ciprofloxacin Hives,Rash High 01/31/2015 Medications albuterol HFA (PROAIR HFA ; PROVENTIL HFA ; VENTOLIN HFA) 90 mcg/actuation inhaler Inhale 2 puffs by mouth every 4 (four) hours if needed for shortness of breath or wheezing. 8 Active azelastine-flutic asone 137-50 mcg/spray spray,non-aerosol Administer 1 spray into each nostril 2 (two) times a day. 2 Active brimonidine (ALPHAGAN) 0.2 % ophthalmic solution Administer 1 drop into both eyes 2 (two) times a day. 8 Active citalopram (CeleXA) 40 mg tablet Take [...] 2 (two) times a day. 4 Active dorzolamide-timol oL (COSOPT) 22.3-6.8 mg/mL ophthalmic solution Administer 1 drop into both eyes 2 (two) times a day. 1 Active EPINEPHrine (EpiPen 2-Taras) 0.3 mg/0.3 mL [...] 1 (one) time each day. 1 Active blood-glucose meter kit 1 each by [...] in any 24 hour period 4 Active mometasone-formot kaleigh (DULERA 200) 200-5 mcg/actuation inhaler Inhale 1 [...] mouth 2 (two) times a day. Active cetirizine (ZyrTEC) 10 mg tabletIndications :Severe persistent asthma, uncomplicated ([facility] V28) TAKE 1 TABLET BY MOUTH EVERY DAY 90 tablet 1 5 Active atorvastatin (LIPITOR) 80 mg tablet TAKE 1 TABLET BY MOUTH 1 TIME EACH DAY. 90 tablet 1 5 Active dulaglutide (Trulicity) 0.75 mg/0.5 mL pen injector injection Inject 0.5 mL (0.75 mg total) under the skin every 7 (seven) days. 6 mL 3 5 Active metFORMIN XR (GLUCOPHAGE-XR) 500 mg 24 hr tabletIndications :Type 2 diabetes mellitus with diabetic polyneuropathy, without long-term current use of insulin ([facility] V24, [facility] V28) Take 1 tablet (500 mg total) by mouth 2 (two) times a day. 180 tablet 3 5 Active blood sugar diagnostic (FreeStyle Lite Strips) test strip 1 each by Other route 2 (two) times a day. 200 each 3 5 Active freestyle 28 gauge lancets Check blood sugar two times a day or as directed 200 each 3 5 02/13/20 26 Active Active Problems Problem Noted Date Diagnosed [...] polyneuropathy, without long-term current use of insulin ([facility] V24, [facility] V28) 06/03/2019 Cutaneous mastocytosis 08/15/2017 Osteopenia 08/15/2017 Overview (05/26/2024): DEXA 03/20/2015 LUMBAR T -1.3, L femoral neck T-1.1 Pulmonary nodules 08/15/2017 Overview (05/26/2024): CT 02/09/2015 CT in 2020 unchanged. No further work up needed Thoracic spondylosis 08/15/2017 Vitamin D deficiency 08/15/2017 Obesity (BMI 30-39.9) 07/20/2016 Elevated alkaline phosphatase level 07/05/2016 Degenerative arthritis of knee, bilateral 2015 Type 2 diabetes mellitus wit hout complication ([facility] V24, [facility] V28) 09/24/2015 Chronic pain 05/21/2015 Neck pain 05/21/2015 Allergic rhinoconjunctivitis 01/02/2015 Overview (05/26/2024): Sees Allergy and PULM Ovarian cyst 01/08/2014 Encounters Date Type Department Care Team Description 03/17/2025 1:55 PM EDT - 03/17/2025 11:59 PM EDT Hospital Encounter Radiology Department - [address] [phone] Encounter for screening mammogram for breast cancer Discharge Disposition: Home or Self Care 02/12/2025 8:30 AM EDT Office Visit Endocrinology - [address] [phone] Reny Torres PA Type 2 diabetes mellitus with diabetic polyneuropathy, without long-term current use of insulin ([facility] V24, [facility] V28) (Primary Dx) 12/25/2024 11:00 AM EDT Office Visit Orthopedic Surgery - [place] [address] [place] [phone] Lacy Mark PA Primary osteoarthritis of both [...] Date Site/Laterality Comments PARTIAL HYSTERECTOMY 2005 PROCEDURE: OR SUPRACERVICAL ABDL HYSTER W/WO RMVL TUBE OVARY; COMMENT: fibroids CHOLECYSTECTOMY 2005 PROCEDURE: HISTORICAL CHOLECYSTECTOMY SECTION PROCEDURE: HISTORICAL DELIVERY; COMMENT: X3 UPPER GASTROINTESTINAL ENDOSCOPY 04/02/2020 PROCEDURE: OR UPPER GI ENDOSCOPY PERFORMED; COMMENT: Visually normal, [...] DX:Vitamin D deficiency Neuropathy DX:Neuropathy Diabetes mellitus (CMS/HCC V 24, CMS/HCC V28) DX:Diabetes mellitus (HCC) Family History Medical History Relation [...] Record ed Within the last 3 months, carmen cheng many times did you visit the emergency [...] care for your loved ones. For example, children's counselor or elderly care for an older adult? [...] Sexual Orientation Not on file Obstetrics History Para Term AB IAB SAB Ectopic Multiple Livin g Live Births 3 3 3 3 Date Outcome GA Total Labor Labor/2nd/3rd Weight Sex Type Anes PTL Mitzy A1 A5 Name Clin Term Term Term Last Filed Vital Signs Vital Sign Reading Time Taken Comments Blood Pressure 102/72 02/12/2025 8:32 AM EDT C Pulse 64 02/12/2025 8:32 AM EDT Temperature 36.2 C (97.1 F) 02/12/2025 8:32 AM EDT Respiratory Rate 16 07/04/2024 11:0 0 AM EST Oxygen Saturation 99% 05/03/2023 2:1 5 PM EDT at rest, room air Inhaled Oxygen Concentration - - Weight 80.2 kg (176 lb 12.8 oz) 02/12/2025 8:32 AM EDT Height 160 cm (5' 3 ) 02/12/2025 8:32 AM EDT Body Mass Index 31.32 02/12/2025 8:32 AM EDT Plan of Treatment Upcoming Encounters Date Type Department Care Team (Late st Contact Info) Description 04/16/2025 1:15 PM EDT Office Visit Adult Medicine [facility] [address] [place] [phone] Leslie Mathis PA [address] [place] [address] Health Maintenance Due Date Last Done Comments Hepatitis B Vaccines (1 of 3 - 19+ 3-dose series) 1992 Zoster Vaccines (1 of 2) 1992 Pneumococcal Vaccine: 50+ Years (2 of 2 - PCV) 01/08/2015 01/08/2014 HIV Screening 07/30/2022 DTaP,Tdap,and Td Vaccines (2 - Td or Tdap) 01/09/2024 01/08/2014 COVID-19 Vaccine ( season) 2024 11/08/2022, 06/17/2021, 02/15/2021, Additional history exists Depression Screening 08/21/2024 08/24/2023 Diabetes: Blood Sugar Control Test (HGBA1C) 06/19/2025 12/18/2024, 07/04/2024, 01/16/2024, Additional history exists Diabetes: Annual Urine Albumin-Creatinine Ratio (uACR) 07/04/2025 07/04/2024, 01/19/2023 Diabetes: Annual GFR (Glomerular Filtration Rate) 07/04/2025 07/04/2024, 11/23/2023 Hypertension/CHF/CAD Annual BMP Blood Test 07/04/2025 07/04/2024, 11/23/2023 Social Influencers of Health Screening 07/04/2025 07/04/2024 Diabetes: Annual Retina Eye Exam 09/10/2025 09/10/2024 Diabetes: Annual Foot Exam 10/01/2025 10/01/2024, Breast Cancer Screening 03/17/2027 03/17/20 25, 03/07/2024, 03/07/2024, Additional history exists Cholesterol Screening (Lipid Panel) 12/18/2029 12/18/2024, 07/04/2024, 11/23/2023 Colorectal Cancer Screening: Colonoscopy 04/02/2030 [...] age to complete this topic Meningococcal B Vaccine Aged Out No l onger eligible based on patient's age to complete this topic RSV Immunization Patients Under 20 months Aged Out No longer eligible based on patient's age to complete this topic Varicella Vaccines Aged Out No longer eligible based on patient's age to complete this topic Goals Goal Patient Goal Type Associated Problems Recent Progress Patient-Stated? Author PT LTGs General No Gerber Smith PT Note: Pt will ascend/descend 12 steps with no knee pain reported Pt will complete 6 minute walk test with no knee pain reported Pt will be independent with HEP Procedures Procedure Name Priority Date/Time Associated Diagnosis Comments MG MAMMO DIGITAL SCREENING W GABE BILAT Routine 03/17/2025 2:07 PM EDT Encounter for screening mammogram for breast cancer POC GLUCOSE Routine 02/12/2025 8:28 AM EDT Type 2 diabetes mellitus with diabetic polyneuropathy, without long-term current use of insulin ([facility] V24, [facility] V28) HEMOGLOBIN A1C Routine 12/18/2024 10:17 AM EDT Type 2 diabetes mellitus with diabetic polyneuropathy, without long-term current use of insulin ([facility] V24, [facility] V28) LIPID PANEL WITH REFLEX TO DIRECT LDL Routine 12/18/2024 10:17 AM EDT Mixed hyperlipidemia MICROALBUMIN CREATININE URINE RATIO Routine 07/04/2024 12:03 PM EST DM (diabetes mellitus) with complications (CMS/HCC V24, [facility] V28) Primary hypertension Mixed hyperlipidemia COMPREHENSIVE METABOLIC PANEL Routine 07/04/2024 12:03 PM EST DM (diabetes mellitus) with complications (CMS/HCC V24, CMS/HCC V28) Primary hypertension Mixed hyperlipidemia HEPATITIS C SCREENING Routine 01/16/2024 DIABETES FOOT EXAM Routine 01/11/2024 DEPRESSION SCREENING Routine 08/24/2023 COLONOSCOPY Routine 04/02/2020 from Last 3 Months or Most Recently Relevant to Health Maintenance Results * MG Mammo Digital Screening w Gabe bilat (03/17/2025 2:07 PM EDT) Anatomical Region Laterality Modality Breast Bilateral Mammography 03/19/2025 9:25 AM EDT Impressions 03/19/2025 9:30 AM EDT No mammographic evidence of malignancy. BI-RADS CATEGORY: 1 - NEGATIVE RECOMMENDATION: Screening bilateral mammogram is recommended in 1 year. Mammo Location: [facility], [address] [place] [address], [id number], . -------- FINAL REPORT -------- Dictated By: Diane Ludn Dictated Date: 03/19/2025 09:25 ET Assigned Physician: Diane Lund Reviewed and Electronically Signed By: Diane Lund Signed Date: 03/19/2025 09:30 ET Workstation ID: [id number] Transcribed By: Self Edit Transcribed Date: 03/19/2025 09:25 ET Narrative 03/19/2025 9:30 AM EDT Bilateral screening mammogram. CLINICAL: 49 years old, Female, routine annual exam. COMPARISON: Prior mammograms, latest from 03/07/2024. TECHNIQUE: Bilateral MLO and CC views were obtained digitally with 2-D C views and 3-D mammogram (digital breast tomosynthesis). Computer-aided detection was utilized in evaluation of this exam (CAD). FINDINGS: There is no evidence of suspicious mass or architectural distortion. No worrisome calcifications are evident. There has been no significant change from prior exam(s). BREAST DENSITY: B - There are scattered areas of fibroglandular density. Procedure Note Diane Lund MD - 03/19/2025 Bilateral screening mammogram. CLINICAL: 49 years old, Female, routine annual exam. COMPARISON: Prior mammograms, latest from 03/07/2024. TECHNIQUE: Bilateral MLO and CC views were obtained digitally with 2-D Cviews and 3-D mammogram (digital breast tomosynthesis). Computer-aideddetection was utilized in evaluation of this exam (CAD). FINDINGS: There is no evidence of suspicious mass or architectural distortion. Noworrisome calcifications are evident. There has been no significantchange from prior exam(s). BREAST DENSITY: B - There are scattered areas of fibroglandular density. IMPRESSION: No mammographic evidence of malignancy. BI-RADS CATEGORY: 1 - NEGATIVE RECOMMENDATION: Screening bilateral mammogram is recommended in 1 year. Mammo Location: [facility], [address] [place] [address], [id number], . -------- FINAL REPORT -------- Dictated By: Diane Lund Dictated Date: 03/19/2025 09:25 ET Assigned Physician: Diane Lund Reviewed and Electronically Signed By: Diane Lund Signed Date: 03/19/2025 09:30 ET Workstation ID: [id number] Transcribed By: Self Edit Transcribed Date: 03/19/2025 09:25 ET us Elda Sanchez MD IMG BI PROCEDURES Final Result * POC glucose manually resulted (02/12/2025 8:28 AM EDT) Glucose POC 114 mg/dL Comment:Fasting Blood Capillary blood specimen / Unknown 02/12/2025 8:28 AM EDT us eRny [facility] POINT OF CARE TEST ENTER/ED IT ORDERABLES Final Result * Lipid panel with reflex to direct LDL (12/18/2024 10:17 AM EDT) Cholesterol 165 0 - 200 mg/dL LAB CHEMISTRY METHOD 12/18/2024 9:40 PM EDT [facility] Triglycerides 120 0 - 150 mg/dL LAB CHEMISTRY METHOD 12/18/2024 9:40 PM EDT [facility] HDL 64 >=40 mg/dL LAB CHEMISTRY METHOD 12/18/2024 9:40 PM EDT [facility] LDL Calculated 77 0 - 100 mg/dL LAB CHEMISTRY METHOD 12/18/2024 9:40 PM EDT [facility] VLDL Cholesterol Jf 24 mg/dL LAB CHEMISTRY METHOD 12/18/2024 9:40 PM EDT [facility] Non HDL Chol. (LDL+VLDL) 101 <145 mg/dL LAB CHEMISTRY METHOD 12/18/2024 9:40 PM EDT [facility] Chol/HDL Ratio 2.6 0.0 - 4.4 LAB CHEMISTRY METHOD 12/18/2024 9:40 PM EDT [facility] Blood Venous blood specimen / Unknown Venipuncture / Unknown 12/18/2024 10:17 AM EDT 12/18/2024 10:17 AM EDT Elda Sanchez MD LAB BLOOD ORDERABL ES Final Result [facility] [address] [place] [address], * Hemoglobin A1c (12/18/2024 10:17 AM EDT) Hemoglobin A1C 6.2 <6.5 % LAB CHEMISTRY METHOD 12/18/2024 1:28 PM EDT [facility] Mean Bld Glu Estim. 131 mg/dL LAB CHEMISTRY METHOD 12/18/2024 1:28 PM EDT [facility] Blood Venous blood specimen / Unknown Venipuncture / Unknown 12/18/2024 10:17 AM EDT 12/18/2024 10:17 AM EDT Elda Sanchez MD LAB BLOOD ORDERABL ES Final Result Performing Organization Address [facility]/ZIP Co de Phone Number [facility] [address] [place] [address], [place] [phone] * Microalbumin creatinine urine ratio (07/04/2024 12:03 PM EST) Creatinine, Urine 131.0 mg/dL LAB CHEMISTRY METHOD 07/04/2024 5:18 PM EST [facility] Microalb, Ur 19.7 0.0 - 29.0 mg/L LAB CHEMISTRY METHOD 07/04/2024 5:18 PM EST [facility] Microalb/Creat Ratio 15 <30 mg/g creat LAB CHEMISTRY METHOD 07/04/2024 5:18 PM EST [facility] Urine Urine specimen from urethra / Unknown Non-blood Collection / Unknown 07/04/2024 12:03 PM EST 07/04/2024 12:03 PM EST Elda Sanchez MD LAB URINE ORDERABL ES Final Result Performing Organization Address City/[facility]/ZIP Co de Phone Number [facility] [address] [place] [address], [place] [phone] * (ABNORMAL) Comprehensive metabolic panel (07/04/2024 12:03 PM EST) Sodium 140 133 - 145 mmol/L LAB CHEMISTRY METHOD 07/04/2024 4:20 PM EST [facility] Potassium 4.2 3.5 - 5.5 mmol/L LAB CHEMISTRY METHOD 07/04/2024 4:20 PM EST [facility] Chloride 105 96 - 110 mmol/L LAB CHEMISTRY METHOD 07/04/2024 4:20 PM [facility] CO2 30 21 - 32 mmol/L LAB CHEMISTRY METHOD 07/04/2024 4:20 PM [facility] Anion Gap 5 3 - 11 LAB CHEMISTRY METHOD 07/04/2024 4:20 PM [facility] Glucose 98 70 - 100 mg/dL LAB CHEMISTRY METHOD 07/04/2024 4:20 PM [facility] BUN 10 5 - 25 mg/dL LAB CHEMISTRY METHOD 07/04/2024 4:20 PM [facility] Creatinine 0.66 0.50 - 1.10 mg/dL LAB CHEMISTRY METHOD 07/04/2024 4:20 PM [facility] eGFR 107 >=60 mL/min/1. 73m2 LAB CHEMISTRY METHOD 07/04/2024 4:20 PM [facility] Comment:Calculation based on the Chronic Kidney Disease Epidemiology Collaboration (CKD-EPI) equation refit without adjustment for race. BUN/Creatinine Ratio 15.2 LAB CHEMISTRY METHOD 07/04/2024 4:20 PM [facility] Calcium 9.9 8.5 - 10.5 mg/dL LAB CHEMISTRY METHOD 07/04/2024 4:20 PM [facility] AST (SGOT) 14 10 - 42 unit/L LAB CHEMISTRY METHOD 07/04/2024 4:20 PM [facility] ALT (SGPT) 20 10 - 60 unit/L LAB CHEMISTRY METHOD 07/04/2024 4:20 PM [facility] Alkaline Phosphatase 138(H) 42 - 121 unit/L LAB CHEMISTRY METHOD 07/04/2024 4:20 PM [facility] Total Protein 7.0 6.0 - 8.0 g/dL LAB CHEMISTRY METHOD 07/04/2024 4:20 PM [facility] Albumin 3.9 3.2 - 5.0 g/dL LAB CHEMISTRY METHOD 07/04/2024 4:20 PM [facility] Total Bilirubin 0.5 0.0 - 1.4 mg/dL LAB CHEMISTRY METHOD 07/04/2024 4:20 PM EST [facility] Blood Venous blood specimen / Unknown Venipuncture / Unknown 07/04/2024 12:03 PM EST 07/04/2024 12:03 PM EST Elda Sanchez MD LAB BLOOD ORDERABL ES Final Result [facility] [address] [place] [address], * Hepatitis C Screening (01/16/2024) [facility] Hepatitis C Screening abstracted Historical Provider HEALTH MAINTENANCE Final Result * Diabetes Foot Exam (01/11/2024) [facility] Diabetes: Annual Foot Exam abstracted Historical Provider HEALTH MAINTENANCE Final Result * Depression Screening (08/24/2023) [facility] Depression Screening abstracted Historical Provider HEALTH MAINTENANCE Final Result * Colonoscopy (04/02/2020) [facility] Colonoscopy no interpretation , abstracted Anatomical Region Laterality Modality Other Historical Provider HEALTH MAINTENANCE Final Result from Last 3 Months or Most Recently Relevant to Health Maintenance Insurance [employer] Care Teams Circulating Nurse Relationship Specialty Start Date End Date Elda Sanchez MD [address] [place] [id number] PCP - General Internal Medicine 05/11/22
--- OUTSIDE RECORDS SUMMARY | 2025-03-25 12:57 | XMS_ITS ---
Author Name [facility] Organization Unknown Care Team Organization Name Specialty Phone Email Start Date End Da te [facility] Elda Lewis Primary Care 11/22/2022 04/08/2024 [facility] Ashlyn Primary Care 06/28/2022 04/08/2024
== END 2025-03-25 13:24 | disposition home or self-care (01) ==
PROVIDERS: PCP Internal Medicine; Visit Provider Student in an Organized Health Care Education/Training Program
DX: M79.7 Fibromyalgia (principal); M17.0 Bilateral primary osteoarthritis of knee
CPT/HCPCS: 20610; 99213

== ENCOUNTER → 2025-03-25 12:16 | Outpatient (BNVA) | payer OTHER, SELFPAY | PROVIDERS: PCP Internal Medicine; Visit Provider Student in an Organized Health Care Education/Training Program | DX: M17.0 Bilateral primary osteoarthritis of knee (principal) | CPT/HCPCS: 20610; 99212; J2003; J3300 ==

== ENCOUNTER 2025-05-20 14:21 | Outpatient (REF) | payer OTHER, SELFPAY ==
--- NOTE | ~2025-05-20 | XR_ITS ---
EXAMINATION: XR CHEST CLINICAL INFORMATION: M54.9 - Dorsalgia, unspecified COMPARISON: None available. TECHNIQUE: 2 views of the chest were obtained. FINDINGS: No significant abnormality is noted involving the heart, lungs, mediastinum, or soft tissues. Anterior osteophytes are present throughout the thoracic spine and there is minimal disc space narrowing. XR/XR chest 2V IMPRESSION: Unremarkable examination. Mild degenerative disc disease. Electronically signed by: Charli Crawford MD 05/20/2025 03:34 PM EDT
--- NOTE | ~2025-05-20 | XR_ITS ---
EXAM: Three-view cervical spine x-ray TECHNIQUE: AP, lateral, and alignment of odontoid views of the cervical spine INDICATION: Dorsalgia PRIOR: None FINDINGS: There is straightening of the cervical lordosis. There is mild convex left curvature of the cervical spine. There is no prevertebral soft tissue swelling. Small anterior osteophytes are noted anteriorly at C4-5, C5-6, and C6-7. There is mild convex left curvature of the cervical spine. XR/XR cervical spine 3V IMPRESSION: There is straightening of the expected cervical lordosis. This can be idiopathic, but can also be related to degenerative change, muscle spasm, or posterior soft tissue injury. Electronically signed by: Charli Crawford MD 05/20/2025 03:35 PM EDT
[2025-05-20 15:11] LABS: MANUAL DIFF FLAG NO
[2025-05-20 15:29] LABS: Hematocrit 38.3 % (37.0-47.0); Hemoglobin 12.4 g/dl (12.0-16.0); Imm Gran Abs Auto 0.03 X10*3/uL (0.00-0.03); Imm Gran Pct Auto 0.3 % (0.0-0.4); Lymphocytes Absolute Auto 2.9 X10*3/uL (1.2-4.9); Mean Corpuscular HGB Conc 32.4 g/dl (31.0-35.0); Mean Corpuscular Hemoglobin 27.6 pg (27.0-33.0); Mean Corpuscular Volume 85.3 fL (80.0-98.0); NRBC Abs Auto 0.000 X10*3/uL (0.0-0.012); NRBC Pct Auto 0.0 /100WBC (0.0-0.2); Platelet Count 322 X10*3/uL (160-400); Red Blood Count 4.49 X10*6/uL (4.20-5.50); White Blood Count 9.1 X10*3/uL (4.8-10.8)
[2025-05-22 02:28] LABS: Class Alternaria alternata 0; Class Aspergillus fumigatus 0; Class Bermuda Grass 0; Class Birch 0; Class Cat Dander 0; Class Cladosporium herbarum 0; Class Cockroach 0; Class Common Ragweed 0; Class Cottonwood 0; Class Derm. pterony 0; Class Dermatophagoides farinae 0; Class Dog Dander 0; Class Elm 0; Class Maple Box Elder 0; Class Mountain Cedar 0; Class Mouse Urine Protein 0; Class Mugwort 0; Class Oak 0; Class Penicillium crysogenum 0; Class Rough Pigweed 0; Class Sheep Sorrel 0; Class Sycamore 0; Class Timothy Grass 0; Class Walnut Tree 0; Class White Ash 0; Class White Mulberry 0; D002 - IgE D farinae <0.10 kU/L; E001 - IgE Cat Dander <0.10 kU/L; E005 - IgE Dog Dander <0.10 kU/L; G006 - IgE Timothy Grass <0.10 kU/L; I006-IgE Cockroach, German <0.10 kU/L; M002 - IgE Cladosporium herbar <0.10 kU/L; M003 - IgE Aspergillus fumigat <0.10 kU/L; M006 - IgE Alternaria alternat <0.10 kU/L; T001 IgE Maple/Box Elder <0.10 kU/L; T006 - IgE Cedar, Mountain <0.10 kU/L; T007 - IgE Oak, White <0.10 kU/L; T008 IgE Elm, American <0.10 kU/L; T010 - IgE Walnut <0.10 kU/L; T011 - IgE Maple Leaf Sycamore <0.10 kU/L; T014 - IgE Cottonwood <0.10 kU/L; T015 - IgE Ash, White <0.10 kU/L; T070 - IgE White Mulberry <0.10 kU/L; W001 - IgE Ragweed, Short <0.10 kU/L; W006 - IgE Mugwort <0.10 kU/L; W014 IgE Pigweed, Common <0.10 kU/L; W018 IgE Sheep Sorrel <0.10 kU/L
== END 2025-05-20 14:22 | disposition home or self-care (01) ==
LOC: HO.XRAY 14:21
PROVIDERS: PCP Internal Medicine; Visit Provider Hospitalist
DX: J45.51 Severe persistent asthma with (acute) exacerbation (principal); T78.40XA Allergy, unspecified, initial encounter; R91.1 Solitary pulmonary nodule; M54.89 Other dorsalgia; J30.9 Allergic rhinitis, unspecified; G47.33 Obstructive sleep apnea (adult) (pediatric)
CPT/HCPCS: 36415; 71046; 72040; 82785; 85025; 85652; 86003; 99212

== ENCOUNTER 2025-05-20 14:21 | Outpatient (AMB) | payer OTHER, SELFPAY ==
--- NOTE | 2025-05-20 14:23 | MHC.OFFVIS ---
Vital Signs 05/20/25 14:24 Height 5 ft 2 in Weight 180 lb 12.465 oz BMI 33.1 BP 148/60 H Blood Pressure Location Lt brachial Position Sitting Pulse 65 Pulse Source Pulse Oximeter Pulse Oximetry (%) 99 Oxygen Delivery Method Room Air Intake Visit Reasons: asthma Allergies ciprofloxacin Allergy (Severe, Verified 05/20/25 14:26) Rash and Itching HPI Comments Details: The patient is a 49-year-old woman known severe persistent asthma multiple allergies on maximize respiratory therapy. She is currently getting Xolair through her cook chili. Overall the patient has been doing better on this regimen. However, she still having episodes at nighttime which is waking up short of breath. The episodes are scary and has been becomes very concerned when she wakes up short of breath. Usually she is able to go back to sleep in does not have to use her rescue inhaler. The patient does wake up tired and does have headaches in the morning. Her [place] score is elevated over 08/13. The patient has been requested to have sleep studies but she has been reluctant. At this moment the patient needs to consider having sleep study he will plan to do at home so she can be more comfortable and be more hearing to doing it. In addition to that the patient has not been using his Spiriva as prescribed. I am hopeful that she can use it at nighttime in order to minimize some of those symptoms. The patient also has underlying reflux disease. We did talk about the reflux diet and she will try to minimize certain things like tomatoes and also soda. She is already eliminating coffee and fatty greasy foods. The patient will avoid eating 3 hours before bedtime unless she has to because of her diabetes. And she was sleep elevated and but blocks on the head of the bed to elevate the head of bed. 03/1924 the patient is here for pulmonary follow-up visit. Overall the patient has been doing fairly well from a respiratory status. She did have a few bouts of bronchitis during the summer and spring. Although she is feeling better. She is having issues now with kidney stones. She did follow-up with urology and scheduled to undergo lithotripsy. For respiratory status she is doing very well right now. All she is using his her Ventolin rescue inhaler. The patient did have a maintenance inhaler before but she has not been using it. In view of her asthma issues in requiring her rescue inhaler couple times a week will go ahead and start her on Breo. In addition to that she can continue with her nasal therapy for nasal congestion and allergies. She continue on Xolair. The patient has been treated with CPAP. The CPAP therapy has been affecting beneficial. Although she does not use it every night. The patient does struggle with it still. I did encourage her to try to use it at least 4 hours a night. The patient is able to proceed with surgery and anesthesia from a pulmonary standpoint. Will go ahead and send a preop note to urology stating that she is okay to proceed. The patient should use her short-acting beta agonist as needed pre and post surgery. Otherwise after she has her surgery she can go ahead and start the Breo. 11/18/2024 the patient is here for a pulmonary follow-up visit. She has not been feeling well. She had to stop the Xolair because it was causing rash. She did not want to do any other shots at this time. She continues to use her respiratory inhalers with only partial improvement. She has also been complaining of a sore throat and some subjective fevers and a persistent cough. The cough bothers her at nighttime specially. Moderate severity. She just wants to feel better. She has not been able to use CPAP because she can not tolerate the mask. Therefore she has been sleeping without it. She also complains of some flank discomfort primarily in the left lung. When she is taking a deep breath. Would the look to see if she has had any imaging studies and we did not see any recent imaging studies or laboratories. Therefore after the visit she can go ahead and get x-rays and blood work. In the meantime will go ahead and start her on Symbicort to help her with her symptoms little bit more and also she can start a course of doxycycline. Will go ahead and follow-up with the blood work and she can return in 3 months we can follow-up with her response to therapy and to see if additional therapies are warranted. 05/20/2025 the patient is here for pulmonary follow-up visit. Overall the is not feeling well. She is coughing more. She is continues use her respiratory inhalers with partial improvement of the symptoms. Primarily she did see Allergy in the past. She has been on multiple biologic therapies including Xolair and Dupixent and I believe L5 inhibitor. Although no significant improvement with respiratory symptoms. She is also complaining of back pain. Some pleuritic component. She also complains of neck discomfort she is not sure if is related. She is not sure if is from her back or her lungs. Will go ahead and request imaging studies at this time. In addition to that will request allergy testing. She may be a good candidate for test prior specially with her of tried all the other biologics in the past. Specially if she continues to be symptomatic on maximum respiratory therapy. The patient also has a cough. She does respond well to the Bentson Jamal in addition to the cough medication. Will provide her some to give her some relief of her significant coughing at this time. The patient follow-up in 6 months if she has any issues prior to that she can always call for further recommendations. FORMERLY [facility], [facility] Medical History (Updated 05/20/25 @ 22:41 by Tor Torres MD) Allergies Back pain Inflammatory arthropathy Long-term use of immunosuppressant medication Intermittent pain and swelling of hand Chronic bronchitis Morbid obesity Diabetes mellitus type 2 in obese Disc degeneration, lumbar Spinal stenosis, lumbar Spondylosis of lumbar spine Spondylosis of thoracic spine Spondylosis of cervical spine IGGY (obstructive sleep apnea) Chronic allergic rhinitis Asthma Surgical History Hx of endoscopy History of partial hysterectomy Hx of colonoscopy Hx of cholecystectomy History of 3 sections Family History Mother Coronary artery disease Hypertension Diabetes High cholesterol Glaucoma Father Hypertension Diabetes High cholesterol Social History Alcohol intake: current Alcohol intake frequency: does not drink Patient Tobacco Use Status: Never used Tobacco Review of Systems Const Reports difficulty sleeping, Denies night sweats and Reports weight gain ENT Denies change in voice, Denies lip swelling, Denies mouth pain, Reports nasal congestion, Reports nasal discharge, Reports neck pain and Denies tongue swelling Card Denies chest pain Resp Reports chest congestion, Reports cough, Denies hemoptysis and Reports wheezing GI Denies abdominal pain Musc Reports back pain and Reports neck pain Psych Denies no additional complaints Lasha/Lymph Denies easy bleeding and Denies lymphadenopathy Aller/Immun Denies lip swelling, Denies tongue swelling and Reports wheezing Physical Exam Vital Signs: Last Vital Signs Pulse 65 05/20/25 14:24 BP 148/60 H 05/20/25 14:24 Pulse Ox 99 05/20/25 14:24 Oxygen Delivery Method Room Air 05/20/25 14:24 BMI result Body Mass Index 33.1 Const General: alert HEENT Ears: TM's normal bilaterally General nose exam: Abnormal mucous membranes and turbinates present, Nasal discharge present and no nasal polyps Throat: Yes cobblestoning Neck Neck: Yes normal visual inspection, Yes full ROM and Yes no lymphadenopathy Chest Chest palpation & inspection: tenderness Resp Effort & Inspection: normal respiratory effort Auscultation: no wheezes and diminished lung sounds Cardio Rate: regular rate Rhythm: regular rhythm Heart sounds: S1 normal heart sound present and S2 normal heart sound present GI Palpation (GI): Soft to palpation and nontender Auscultation: normal bowel sounds Assessment & Plan Assessment & Plan (1) Asthma: Code(s): J45.909 - Unspecified asthma, uncomplicated Category: Medical Qualifiers: Asthma complication type: with acute exacerbation Asthma persistence: persistent Asthma severity: severe Qualified Code(s): J45.51 - Severe persistent asthma with (acute) exacerbation (2) Chronic allergic rhinitis: Code(s): J30.9 - Allergic rhinitis, unspecified Category: Medical (3) IGGY (obstructive sleep apnea): Code(s): G47.33 - Obstructive sleep apnea (adult) (pediatric) Category: Medical (4) Back pain: Code(s): M54.9 - Dorsalgia, unspecified Category: Medical Qualifiers: Back pain location: back pain in other location Chronicity: unspecified Qualified Code(s): M54.89 - Other dorsalgia (5) Allergies: Code(s): T78.40XA - Allergy, unspecified, initial encounter Category: Medical Qualifiers: Encounter type: initial encounter Qualified Code(s): T78.40XA - Allergy, unspecified, initial encounter Plan cotinue Symbicort OMAR as needed Nebulizer therapy therapy 2-3 times a day not using CPAP therapy not taking Daliresp stopped Xolair, consider Tezspire or IL5 inhibitor Bloodwork and allergy testing CXR and next xrays cough medicine Nasal rinsing follow-up in 4-6 months Orders: Orders XR chest 2V Today M54.9 - Dorsalgia, unspecified XR cervical spine 3V Today M54.9 - Dorsalgia, unspecified Complete Blood Count Auto Diff Today J45.51 - Severe persistent asthma with (acute) exacerbation, T78.40XA - Allergy, unspecified, initial encounter Immunoglobulin E Today J45.51 - Severe persistent asthma with (acute) exacerbation, T78.40XA - Allergy, unspecified, initial encounter Erythrocyte Sedimentation Rate Today J45.51 - Severe persistent asthma with (acute) exacerbation, T78.40XA - Allergy, unspecified, initial encounter Resp Allergy Profile Region I Today J45.51 - Severe persistent asthma with (acute) exacerbation, R91.1 - Solitary pulmonary nodule, T78.40XA - Allergy, unspecified, initial encounter Medications: Refilled codeine-guaifenesin 10-100 mg/5 mL 10 mL PO Q6H PRN 300 mL 0RF cough 10 days Coding Level of Care Code Est Pt Level 4 (67652) Complex EM visit Add On G2211 Diagnoses Severe persistent asthma with acute exacerbation J45.51 Asthma complication type: with acute exacerbation Asthma persistence: persistent Asthma severity: severe Chronic allergic rhinitis J30.9 IGGY (obstructive sleep apnea) G47.33 Other back pain, unspecified chronicity M54.89 Back pain location: back pain in other location Chronicity: unspecified Allergy, initial encounter T78.40XA Encounter type: initial encounter Time Spent (min) 17
[2025-05-20 14:24] VITALS: BP 148/60; PULSE 65; O2SAT 99; BMI 33.1
--- OUTSIDE RECORDS SUMMARY | 2025-05-20 15:45 | XMS_ITS | Clinical Summary ---
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 180 tablet 3 5 Active blood sugar diagnostic (FreeStyle Lite Strips) test strip 1 each by Other route 2 (two) times a day. 200 each 3 5 Active freestyle 28 gauge lancets Check blood sugar two times a day or as directed 200 each 3 5 04/16/20 26 Active benzonatate (TESSALON) 100 mg capsule Take 1 capsule (100 mg total) by mouth at bedtime as needed for cough. Do not crush or chew. 90 capsule 5 Active Active Problems Problem Noted Date [...] comorbidity and body mass index (BMI) of 31.0 to 31.9 in adult 05/26/2024 Neuropathy 02/24/2021 Chronic diarrhea [...] polyneuropathy, without long-term current use of insulin ([facility] V24, [facility] V28) 06/03/2019 Cutaneous mastocytosis 08/15/2017 Osteopenia 08/15/2017 [...] Encounters Date Type Department Care Team Description 04/16/2025 1:15 PM EDT Office Visit Adult Medicine [address] [phone] Leslie Mathis PA DM (diabetes mellitus) with complications (CMS/HCC V24, CMS/HCC V28) (Primary Dx); Primary hypertension; Mixed hyperlipidemia; Pelvic pain in female; Class 1 obesity due to excess calories with serious comorbidity and body mass index (BMI) of 31.0 to 31.9 in adult 03/17/2025 1:55 PM EDT - 03/17/2025 11:59 PM EDT Hospital Encounter Radiology Department [address] [phone] Encounter for screening mammogram for breast cancer Discharge Disposition: Home or Self Care from Last 3 Months Immunizations Immunization Administration Dates Next Due Influenza Quadravalent, MDCK [...] Date Site/Laterality Comments PARTIAL HYSTERECTOMY 2005 PROCEDURE: NV SUPRACERVICAL ABDL HYSTER W/WO RMVL TUBE OVARY; COMMENT: fibroids CHOLECYSTECTOMY 2005 PROCEDURE: HISTORICAL CHOLECYSTECTOMY SECTION PROCEDURE: HISTORICAL DELIVERY; COMMENT: X3 UPPER GASTROINTESTINAL ENDOSCOPY 04/02/2020 PROCEDURE: NV UPPER GI ENDOSCOPY PERFORMED; COMMENT: Visually normal, [...] for your loved ones. For example, child and family services worker or elderly care for an older adult? [...] Date Recorded What is your living situation? Unrecognized valu e 07/04/2024 Comments No Sex and Gender Information Value [...] 102/72 02/12/2025 8:32 AM EDT C Pulse 73 04/16/2025 12:58 PM EDT Temperature 36.3 C (97.3 F) 04/16/2025 12:58 PM EDT Respiratory Rate 14 04/16/2025 12:58 PM EDT Oxygen Saturation 98% 04/16/2025 12:58 PM EDT Inhaled Oxygen Concentration - - Weight 81.2 kg (179 lb) 04/16/2025 12:58 PM EDT Height 160 cm (5' 3 ) 04/16/2025 12:58 PM EDT Body Mass Index 31.71 04/16/2025 12:58 PM EDT Plan of Treatment Upcoming Encounters Date Type Department Care Team (Late st Contact Info) Description 07/25/2025 1:00 PM EST Office Visit Adult Medicine [address] [phone] Elda Sanchez MD [address] [place] [address] Health Maintenance Due Date Last Done Comments Hepatitis B Vaccines (1 of 3 - 19+ 3-dose series) 1992 Zoster Vaccines (1 of 2) 1992 Pneumococcal Vaccine: 50+ Years (2 of 2 - PCV) 01/08/2015 01/08/2014 HIV Screening 07/30/2022 DTaP,Tdap,and Td Vaccines (2 - Td or Tdap) 01/09/2024 01/08/2014 Diabetes: Blood Sugar Control Test (HGBA1C) 06/19/2025 [...] 11/23/2023 Colorectal Cancer Screening: Colonoscopy 04/02/2030 04/02/2020 RSV Immunization Adult Patients (1 - 1-dose 75+ series) 2048 COVID-19 Vaccine Discontinued 11/08/2022, , 02/15/2021, Additional history exists Influenza Vaccine Discontinued 05/03/2023, , 07/23/2021, Additional history exists Hepatitis C Screening Completed 01/16/2024 Depression Screening Completed 04/16/2025, 08/24/19 24 HIB Vaccines Aged Out No longer eligi [...] Encounter for screening mammogram for breast cancer HEMOGLOBIN A1C Routine 12/18/2024 10:17 AM EDT Type 2 diabetes mellitus with diabetic polyneuropathy, without long-term current use of insulin (CMS/HCC V24, CMS/HCC V28) LIPID PANEL WITH REFLEX TO DIRECT LDL Routine 12/18/2024 10:17 AM EDT Mixed hyperlipidemia MICROALBUMIN CREATININE URINE RATIO Routine 07/04/2024 12:03 PM EST DM (diabetes mellitus) with complications (CMS/HCC V24, CMS/HCC V28) Primary hypertension Mixed hyperlipidemia COMPREHENSIVE METABOLIC PANEL Routine 07/04/2024 12:03 PM EST DM (diabetes mellitus) with complications (CMS/HCC V24, CMS/HCC V28) Primary hypertension Mixed hyperlipidemia HM HEPATITIS C SCREENING Routine 01/16/2024 DIABETES FOOT [...] is recommended in 1 year. Mammo Location: [facility], [address] [place] [address], [address], . -------- FINAL REPORT -------- Dictated By: Diane Lund Dictated Date: 03/19/2025 09:25 ET Assigned Physician: Diane Lund Reviewed and Electronically Signed By: Diane Lund Signed Date: 03/19/2025 09:30 ET Workstation ID: [id number] Transcribed By: Self Edit Transcribed Date: 03/19/2025 [...] is recommended in 1 year. Mammo Location: [facility], [address] [place] [address], [id number], . -------- FINAL REPORT -------- Dictated By: Diane Lund Dictated Date: 03/19/2025 09:25 ET Assigned Physician: Diane Lund Reviewed and Electronically Signed By: Diane Lund Signed Date: 03/19/2025 09:30 ET Workstation ID: [id number] Transcribed By: Self Edit Transcribed Date: 03/19/2025 09:25 ET Elda Sanchez MD IMG BI PROCEDURES Final Result * Lipid panel with reflex to direct LDL (12/18/2024 10:17 AM EDT) Cholesterol 165 0 - 200 mg/dL LAB CHEMISTRY METHOD 12/18/2024 9:40 PM EDT [facility] Triglycerides 120 0 - 150 mg/dL LAB CHEMISTRY METHOD 12/18/2024 9:40 PM EDT [facility] HDL 64 >=40 mg/dL LAB CHEMISTRY METHOD 12/18/2024 9:40 PM EDT [facility] LDL Calculated 77 0 - 100 mg/dL LAB CHEMISTRY METHOD 12/18/2024 9:40 PM EDT [facility] VLDL Cholesterol Jf 24 mg/dL LAB CHEMISTRY METHOD 12/18/2024 9:40 PM EDT [facility] Non HDL Chol. (LDL+VLDL) 101 <145 mg/dL LAB CHEMISTRY METHOD 12/18/2024 9:40 PM EDT [facility] Chol/HDL Ratio 2.6 0.0 - 4.4 LAB CHEMISTRY METHOD 12/18/2024 9:40 PM EDT [facility] Blood Venous blood specimen / Unknown Venipuncture / Unknown 12/18/2024 10:17 AM EDT 12/18/2024 10:17 AM EDT Elda Sanchez MD LAB BLOOD ORDERABL ES Final Result Performing Organization Address [facility]/ZIP Co de Phone Number [facility] [address] [place] [address], [place] [phone] * Hemoglobin A1c (12/18/2024 10:17 AM EDT) Hemoglobin A1C 6.2 <6.5 % LAB CHEMISTRY METHOD 12/18/2024 1:28 PM EDT [facility] Mean Bld Glu Estim. 131 mg/dL LAB CHEMISTRY METHOD 12/18/2024 1:28 PM EDT [facility] Blood Venous blood specimen / Unknown Venipuncture / Unknown 12/18/2024 10:17 AM EDT 12/18/2024 10:17 AM EDT Elda Sanchez MD LAB BLOOD ORDERABL ES Final Result Performing Organization Address City/[facility]/ZIP Co de Phone Number [facility] [address] [place] [address], [place] [phone] * Microalbumin creatinine urine ratio (07/04/2024 12:03 PM EST) Creatinine, Urine 131.0 mg/dL LAB CHEMISTRY METHOD 07/04/2024 5:18 PM EST [facility] Microalb, Ur 19.7 0.0 - 29.0 mg/L LAB CHEMISTRY METHOD 07/04/2024 5:[address] [facility] Microalb/Creat Ratio 15 <30 mg/g creat LAB CHEMISTRY METHOD 07/04/2024 5:[address] [facility] Urine Urine specimen from urethra / Unknown Non-blood Collection / Unknown 07/04/2024 12:03 PM EST 07/04/2024 12:03 PM EST us Elda Sanchez MD LAB URINE ORDERABL ES Final Result [facility] [address] [place] [address], [place] [phone] * (ABNORMAL) Comprehensive metabolic panel (07/04/2024 12:03 PM EST) Sodium 140 133 - 145 mmol/L LAB CHEMISTRY METHOD 07/04/2024 4:[address] [facility] Potassium 4.2 3.5 - 5.5 mmol/L LAB CHEMISTRY METHOD 07/04/2024 4:[address] [facility] Chloride 105 96 - 110 mmol/L LAB CHEMISTRY METHOD 07/04/2024 4:[address] [facility] CO2 30 21 - 32 mmol/L LAB CHEMISTRY METHOD 07/04/2024 4:[address] [facility] Anion Gap 5 3 - 11 LAB CHEMISTRY METHOD 07/04/2024 4:[address] [facility] Glucose 98 70 - 100 mg/dL LAB CHEMISTRY METHOD 07/04/2024 4:[address] [facility] BUN 10 5 - 25 mg/dL LAB CHEMISTRY METHOD 07/04/2024 4:[address] [facility] Creatinine 0.66 0.50 - 1.10 mg/dL LAB CHEMISTRY METHOD 07/04/2024 4:[address] [facility] eGFR 107 >=60 mL/min/1. 73m2 LAB CHEMISTRY METHOD 07/04/2024 4:[address] [facility] Comment:Calculation based on the Chronic Kidney Disease Epidemiology Collaboration (CKD-EPI) equation refit without adjustment for race. BUN/Creatinine Ratio 15.2 LAB CHEMISTRY METHOD 07/04/2024 4:[address] [facility] Calcium 9.9 8.5 - 10.5 mg/dL LAB CHEMISTRY METHOD 07/04/2024 4:[address] [facility] AST (SGOT) 14 10 - 42 unit/L LAB CHEMISTRY METHOD 07/04/2024 4:[address] [facility] ALT (SGPT) 20 10 - 60 unit/L LAB CHEMISTRY METHOD 07/04/2024 4:[address] [facility] Alkaline Phosphatase 138(H) 42 - 121 unit/L LAB CHEMISTRY METHOD 07/04/2024 4:[address] [facility] Total Protein 7.0 6.0 - 8.0 g/dL LAB CHEMISTRY METHOD 07/04/2024 4:[address] [facility] Albumin 3.9 3.2 - 5.0 g/dL LAB CHEMISTRY METHOD 07/04/2024 4:[address] [facility] Total Bilirubin 0.5 0.0 - 1.4 mg/dL LAB CHEMISTRY METHOD 07/04/2024 4:[address] [facility] Blood Venous blood specimen / Unknown Venipuncture / Unknown 07/04/2024 12:03 PM EST 07/04/2024 12:03 PM EST us Elda Sanchez MD LAB BLOOD ORDERABL ES Final Result [facility] [address], [place] [address] [phone] * Hepatitis C Screening (01/16/2024) Pathologist [facility] Hepatitis C Screening abstracted Historical Provider HEALTH MAINTENANCE Final Result * Diabetes Foot Exam (01/11/2024) Pathologist [facility] Diabetes: Annual Foot Exam abstracted Historical Provider HEALTH MAINTENANCE Final Result * Depression Screening (08/24/2023) Pathologist [facility] Depression Screening abstracted Historical Provider HEALTH MAINTENANCE Final Result * Colonoscopy (04/02/2020) Pathologist [facility] Colonoscopy no interpretation , abstracted Anatomical Region Laterality Modality Other Historical Provider HEALTH MAINTENANCE Final Result from Last 3 Months or Most Recently Relevant to Health Maintenance Insurance [facility] [employer] Care Teams Auto Body Mechanic Apprentice Relationship Specialty Start Date End Date Elda Sanchez MD [address] [place] [address] PCP - General Internal Medicine 05/11/22
== END 2025-05-20 14:56 | disposition home or self-care (01) ==
LOC: HO.HPS 14:22
PROVIDERS: PCP Internal Medicine; Visit Provider Hospitalist
DX: J45.51 Severe persistent asthma with (acute) exacerbation (principal); J30.9 Allergic rhinitis, unspecified; G47.33 Obstructive sleep apnea (adult) (pediatric); M54.89 Other dorsalgia; T78.40XA Allergy, unspecified, initial encounter
CPT/HCPCS: 99214

== ENCOUNTER → 2025-05-20 15:11 | Outpatient (BNV) | payer OTHER, SELFPAY | PROVIDERS: PCP Internal Medicine; Visit Provider Radiology Diagnostic Radiology | DX: M54.2 Cervicalgia (principal); M51.34 Other intervertebral disc degeneration, thoracic region; J45.51 Severe persistent asthma with (acute) exacerbation | CPT/HCPCS: 71046; 72040 ==

== ENCOUNTER 2025-07-10 12:34 | Outpatient (AMB) | payer OTHER, SELFPAY ==
--- NOTE | 2025-07-10 13:12 | A.OFFVIS_ITS ---
Vital Signs 07/10/25 13:17 Height 5 ft 2 in Weight 182 lb 5.156 oz BMI 33.3 BP 132/74 Blood Pressure Location Lt brachial Position Sitting Pulse 68 Pulse Source Pulse Oximeter Pulse Oximetry (%) 98 Oxygen Delivery Method Room Air Intake Visit Reasons: 4 Months Intake Note: Patient presents for Fibromyalgia follow up. Patient c/o of Rt knee pain and is requesting x-rays. Burrer Operator Required: Yes Burrer Operator Language: Lan Administrator Services: Burrer Operator Offered & Declined Burrer Operator Name: Ankush Vazquez Information Interpreted: non-clinical & clinical Residential Treatment Staff: Residential Treatment Staff Present (Ankush Vazquez) Accompanied by: Son Allergies ciprofloxacin Allergy (Severe, Verified 07/10/25 13:16) Rash and Itching Medication List - Last Reconciled 07/10/25 by Day Gage MD albuterol sulfate 2.5 mg (3 mL) inhalation Q6H PRN 30 days albuterol sulfate 90 mcg/actuation 2 inhalations inhalation Q6H PRN 30 days atorvastatin 40 mg PO DAILY azelastine-fluticasone 137-50 mcg/spray (Dymista) 1 spray intranasal BID 30 days benzonatate 200 mg PO BID PRN 30 days budesonide 0.5 mg inhalation DAILY budesonide-formoterol 160-4.5 mcg/actuation (Symbicort) 2 puffs inhalation BID 30 days cetirizine 10 mg PO DAILY 30 days citalopram 0 mg PO codeine-guaifenesin 10-100 mg/5 mL 10 mL PO Q6H PRN 10 days colestipol 3 grams PO BID dextromethorphan-guaifenesin 5-100 mg/5 mL (Robitussin Cough-Chest Congestion DM) 10 mL PO Q6H PRN 30 days dorzolamide-timolol 22.3-6.8 mg/mL 1 drp ophthalmic (eye) BID dulaglutide 0.75 mg subcut QWEEK epinephrine 1 IM DIRECTED famotidine (Pepcid) 40 mg PO BEDTIME 30 days fluticasone furoate-vilanterol 100-25 mcg/dose (Breo Ellipta) 1 inh inhalation DAILY 30 days fluticasone propion-salmeterol 232-14 mcg/actuation (AirDuo RespiClick) 1 inh inhalation BID gabapentin 800 mg PO TID glipizide ER 10 mg PO BID hydroxyzine pamoate 50 mg PO BID PRN inhalational spacing device (Aerochamber MV spacer) As directed liraglutide 1.2 mg subcut DAILY meloxicam 7.5 mg PO BID metformin ER 500 mg PO BID montelukast (Singulair) 10 mg PO BEDTIME 30 days nebulizers As directed prazosin 2 mg PO BEDTIME roflumilast (Daliresp) 250 mcg PO DAILY 30 days tiotropium bromide 2.5 mcg/actuation 2 puffs PO DAILY trazodone 50 mg PO BEDTIME PRN umeclidinium 62.5 mcg/actuation 1 inh inhalation DAILY HPI Comments Details: Patient is a 50-year-old female with hyperlipidemia, depression, Diabetes, asthma, polyarticular OA (hands, knees, degenerative disease of the spine) and fibromyalgia here today for follow up Interval History: Patient last seen 03/25/25 with me - Stopped leflunomide 6 months ago - Continues to complain of widespread pain especially in her hands and knees - Pain is usually worse at the end of the day or after using the joint - Feels like the base of her thumb gets swollen sometimes - Has stiffness and feels like it lasts all day - Received bilateral knee injections Today - Not on DMARDs - Steriod injection helped the knees - About 2 weeks ago she stepped wrong on the stairs on the way down and injured her right knee which is now in pain - The left knee is okay but since she is using it to bare most of her weight it is starting to hurt her as well, not as bad as the right Rheumatologic History: OA/fibromyalgia - tried prednisone and leflunomide with some help but still had persistent pain - ultimately diagnosed with OA based on XRs and exam and taken off DMARDs Initial History: The patient presents for evaluation of widespread pains. Our medical billing assistant, Kaya, translates for us. The patient has a 25-30 year history of widespread pains. She had been evaluated at [place] about [address] Esteban. She was thought to have fibromyalgia and osteoarthritis. Once again she describes pains in the knees, shoulders, neck, lower back, hands mostly around the base of the thumbs, and the feet. She remains on a host of medicines including citalopram, gabapentin, and trazodone. These medicines do help her sleep but do not help too much the pain. In the past she also was taking ibuprofen but that bothered her stomach. She was switched to meloxicam at 7.5 mg b.i.d. but still has stomach upset including pain and loose stools. Current Rheumatology Medication(s): [facility] Medical History (Updated 07/10/25 @ 13:52 by Day Gage MD) Allergies Back pain Inflammatory arthropathy Long-term use of immunosuppressant medication Intermittent pain and swelling of hand Chronic bronchitis Morbid obesity Diabetes mellitus type 2 in obese Disc degeneration, lumbar Spinal stenosis, lumbar Spondylosis of lumbar spine Spondylosis of thoracic spine Spondylosis of cervical spine IGGY (obstructive sleep apnea) Chronic allergic rhinitis Asthma Surgical History Hx of endoscopy History of partial hysterectomy Hx of colonoscopy Hx of cholecystectomy History of 3 sections Family History Mother Coronary artery disease Hypertension Diabetes High cholesterol Glaucoma Father Hypertension Diabetes High cholesterol Social History Alcohol intake: current Alcohol intake frequency: does not drink Patient Tobacco Use Status: Never used Tobacco Review of Systems Narrative Review of Systems Constitutional: Denies fever, chills, weight loss ENT: Denies vision changes, eye pain or eye redness, dental caries, dry mouth GI: Denies nausea, vomiting, diarrhea, abdominal pain, change in BM Pulm: Denies SOB, ERIC, hemoptysis, wheezing Cards: Denies chest pain, palpitations Skin: Denies Raynaud's, rash, nail changes, photosensitivity, [employer]: Denies headaches, weakness, paresthesias, recurrent falls MSK: as per HPI All other systems reviewed and are unremarkable except noted above Physical Exam Exam Exam: Vital signs reviewed Physical Examination CONSTITUITIONAL Patient alert and cooperative. Well appearing and in no apparent painful distress MSK Hands * Right Hand: Able to make a fist. No swelling or tenderness to palpation of the MCPs, PIPs or DIPs. * Left Hand: Able to make a fist. No swelling or tenderness to palpation of the MCPs, PIPs or DIPs. * Herbedens nodes noted bilaterally Wrists * Right Wrist: Full ROM to flexion and extension. No swelling or TTP * Left Wrist: Full ROM to flexion and extension. No swelling or TTP Elbows * Right Elbow: Full ROM. No swelling or TTP. No TTP of the medial epicondyle. No TTP of the lateral epicondyle * Left Elbow: Full ROM. No swelling or TTP. No TTP of the medial epicondyle. No TTP of the lateral epicondyle Shoulders * Right shoulder: No swelling noted. No TTP of the AC joint. No TTP of the subacromial bursa. No TTP of the posterior shoulder * Left shoulder: No swelling noted. No TTP of the AC joint. No TTP of the subacromial bursa. No TTP of the posterior shoulder Knees * Right knee: Decreaed ROM 2/2 pain. No swelling noted. TTP of the knee joint line. No TTP of pes anserine bursa * Left knee: Good ROM. No swelling noted. No TTP of the knee joint line. No TTP of pes anserine bursa. * Crepitations felt bilaterally Ankles * Right ankle: Good ankle dorsiflexion and plantar flexion. No swelling. No TTP of the ankle joint * Left ankle: Good ankle dorsiflexion and plantar flexion. No swelling. No TTP of the ankle joint Feet * Right foot: Negative squeeze test * Left foot: Negative squeeze test Tender points? * No tenderness to palpation of the bilateral trapezius, supraspinatus, anterior costochondral junctions, bilateral suboccipital muscle insertions SKIN No rashes Vital Signs: Last Vital Signs Pulse 68 07/10/25 13:17 BP 132/74 07/10/25 13:17 Pulse Ox 98 07/10/25 13:17 Oxygen Delivery Method Room Air 07/10/25 13:17 BMI result Body Mass Index 33.3 Assessment & Plan Assessment & Plan (1) Fibromyalgia: Code(s): M79.7 - Fibromyalgia Category: Medical Plan: #Fibromyalgia Patient is a 50 y.o. female with fibromyalgia and OA here today for follow up Exam and history is consistent with fibromyalgia There is no obvious synovitis on examination Already on gabapentin 800mg tid Plan - Encouraged exercise and stretches - Can consider flexeril or duloxetine in the future - RTC 6 months (2) Osteoarthritis of knees, bilateral: Comment: Steroid injections Bilateral knees 03/2025 Code(s): M17.0 - Bilateral primary osteoarthritis of knee Category: Medical Qualifiers: Osteoarthritis type: primary Qualified Code(s): M17.0 - Bilateral primary osteoarthritis of knee Plan: #Bilateral knee OA Patient with aggravated knee pain on the right after stepping wrong on the stairs Will check XRs prior to proceeding with additional steroid injection Plan - XR Bilateral Knees - Steroid injection of the right knee once there is confirmed no fracture or concerning abnormality Plan I spent 20 minutes reviewing the record and labs, taking a history, examining the patient, discussing the treatment plan, ordering diagnostic work up and documenting in the medical record Orders: Orders XR knee LT 3V Today M25.561 - Pain in right knee, M25.562 - Pain in left knee XR knee RT 3V Today M25.561 - Pain in right knee, M25.562 - Pain in left knee AMB Ketorolac Injection Today M25.569 - Pain in unspecified knee Medications: New ketorolac 30 mg IM ONCE 1 mL 0RF M25.569 - Pain in unspecified knee Coding Level of Care Code Complex visit Add On G2211 Diagnoses Fibromyalgia M79.7 Primary osteoarthritis of both knees M17.0 Osteoarthritis type: primary
[2025-07-10 13:17] VITALS: BP 132/74; PULSE 68; O2SAT 98; BMI 33.3
== END 2025-07-10 14:07 | disposition home or self-care (01) ==
LOC: HO.RHES 12:35
PROVIDERS: PCP Internal Medicine; Visit Provider Student in an Organized Health Care Education/Training Program
DX: M79.7 Fibromyalgia (principal); M17.0 Bilateral primary osteoarthritis of knee; M25.569 Pain in unspecified knee

== ENCOUNTER → 2025-07-10 12:34 | Outpatient (BNVA) | payer OTHER, SELFPAY | PROVIDERS: PCP Internal Medicine; Visit Provider Student in an Organized Health Care Education/Training Program | DX: M79.7 Fibromyalgia (principal); M17.0 Bilateral primary osteoarthritis of knee; M25.561 Pain in right knee; M25.562 Pain in left knee; Z79.1 Long term (current) use of non-steroidal anti-inflammatories (NSAID) | CPT/HCPCS: 96372; J1885 ==

== ENCOUNTER 2025-07-30 10:51 | Outpatient (REF) | payer OTHER, SELFPAY ==
--- NOTE | ~2025-07-30 | XR_ITS ---
EXAMINATION: X-ray bilateral knees CLINICAL INFORMATION: Pain right knee COMPARISON: None TECHNIQUE: Bilateral knee 1 view. Right knee 1 view. Left knee 1 view. FINDINGS: Right knee: No acute fracture, dislocation or suspicious bony lesion is identified Mild medial compartment joint space narrowing. No effusion. Suprapatellar enthesopathy.. No radiopaque foreign body. Left knee: No acute fracture, dislocation or suspicious bony lesion is identified Mild medial compartment joint space narrowing. No significant effusion. Superior patellar insertional enthesopathy. XR/XR Knee Niko 1or 2V IMPRESSION: Right knee: No acute findings. Mild medial compartment arthritis Left knee: No acute findings Mild medial compartment arthritis Electronically signed by: Rory Schofield MD 07/30/2025 02:11 PM [facility]
== END 2025-07-30 10:52 | disposition home or self-care (01) ==
LOC: HO.XRAY 10:51
PROVIDERS: PCP Internal Medicine; Visit Provider Student in an Organized Health Care Education/Training Program
DX: M25.561 Pain in right knee (principal)
CPT/HCPCS: 73560